=== PATIENT | male | born 1970 | race Caucasian/White ===

== ENCOUNTER 2018-01-08 17:16 | Emergency (ER) | payer SELFPAY ==
[2018-01-08] MEDS: HYDROcodone/APAP 5/325MG 1 TAB TABLET PO (19:08)
== END 2018-01-08 19:10 | disposition home or self-care (01) ==
LOC: ER 19:10
DX: L03.116 Cellulitis of left lower limb (principal); R11.0 Nausea
CPT/HCPCS: 99283

== ENCOUNTER 2019-03-26 19:44 | Inpatient (IN) | payer SELFPAY ==
[~2019-03-26] VITALS: Ht 185.4 cm; Wt 118.8 kg
[~2019-03-26 19:44] MED LIST: CLIN300C8 PO
[2019-03-26 20:29] LABS: BASO # 0.2 x10^3/uL (0.0-0.2); BASO % 1 % (0-3); EOS % 0 % (0-3); HEMATOCRIT 42.1 % (39.0-53.0); HEMOGLOBIN 14.3 g/dL (13.0-17.5); LYMPH # 0.5 x10^3/uL (1.0-4.8); LYMPH % 1 % (24-48); MEAN CORPUSCULAR HEMOGLOBIN 30 pg (25-35); MEAN CORPUSCULAR HGB CONC 34 g/dL (31-37); MEAN CORPUSCULAR VOLUME 89 fL (79-100); MONO # 1.1 x10^3/uL (0.0-1.1); MONO % 3 % (0-9); NEUT # 33.9 x10^3/uL (1.8-7.7); NEUT % 95 % (31-73); PLATELET COUNT 247 x10^3/uL (140-400); RED BLOOD COUNT 4.73 x10^6/uL (4.30-5.70); RED CELL DISTRIBUTION WIDTH 14.3 % (11.5-14.5); WHITE BLOOD COUNT 35.8 x10^3/uL (4.0-11.0)
[2019-03-26] MEDS ORDERED: PIPERACILLIN/TAZOBACTAM 4.5 GM in IV NORMAL SALINE 100ML 100 ML IV ONE (20:30)
[2019-03-26] MEDS ORDERED: VANCOMYCIN PER PHARMACY MC ONE (20:30)
[2019-03-26] MEDS ORDERED: VANCOMYCIN 2 GM in IV NORMAL SALINE 500ML BAG 500 ML IV ONE (20:30)
[2019-03-26] MEDS ORDERED: ACETAMINOPHEN 500 MG TABLET PO ONE (20:30)
[2019-03-26] MEDS: IV NORMAL SALINE 1000ML BAG 1,000 ML IV SCH ×3 (20:31→22:43)
[2019-03-26 20:36] LABS: CALCIUM 9.1 mg/dL (8.5-10.1); GFR 79.4; POTASSIUM 4.2 mmol/L (3.5-5.1)
[2019-03-26 20:42] LABS: ALBUMIN 3.6 g/dL (3.4-5.0); ALBUMIN/GLOBULIN RATIO 1.1 (1.0-1.7); C-REACTIVE PROTEIN 60.8 mg/L (0-3.3); TOTAL BILIRUBIN 0.9 mg/dL (0.2-1.0)
[2019-03-26 21:12] LABS: % BANDS 16 % (0-9); % LYMPHS 2 % (24-48); % MONOS 2 % (0-10); % SEGS 80 % (35-66); PLT ESTIMATE ADEQUATE (ADEQUATE)
--- NOTE | 2019-03-26 21:29 | PHYS DOC ---
Past Medical History Past Medical History: No Pertinent History, Other Additional Past Medical Histor: cellulitis Past Surgical History: No Surgical History, Other Additional Past Surgical Histo: lymph node removal Alcohol Use: None Drug Use: None, Methamphetamine Adult General Chief Complaint Chief Complaint: CELLULITIS HPI HPI Patient is a 48 year old male with no significant medical history who presents to the ED today complaining of cellulitis to bilateral lower extremities that has been going on since January 2019. Patient states he was admitted at the end of January for the same infection, he states he was treated with antibiotics. He states the infection did not clear all the way. He states he has continued to have symptoms on and off since then. He states he started running a fever this morning. Denies any nausea, vomiting. Review of Systems Review of Systems Constitutional: Reports fever Eyes: Denies change in visual acuity, redness, or eye pain [] HENT: Denies nasal congestion or sore throat [] Respiratory: Denies cough or shortness of breath [] Cardiovascular: No additional information not addressed in HPI [] GI: Denies abdominal pain, nausea, vomiting, bloody stools or diarrhea [] : Denies dysuria or hematuria [] Musculoskeletal: Denies back pain or joint pain [] Integument: Reports bilateral lower extremity cellulitis Neurologic: Denies headache, focal weakness or sensory changes [] All other systems were reviewed and found to be within normal limits, except as documented in this note. Current Medications Current Medications Allergies Allergies Allergies Coded Allergies Type Severity Reaction Last Updated Verified Iodinated Contrast Media Allergy Severe "throat swells closed" 02/16/19 Yes Physical Exam Physical Exam Constitutional: Well developed, well nourished, no acute distress, non-toxic appearance. [] HENT: Normocephalic, atraumatic, bilateral external ears normal, oropharynx moist, no oral exudates, nose normal. [] Eyes: PERRLA, EOMI, conjunctiva normal, no discharge. [] Neck: Normal range of motion, no tenderness, supple, no stridor. [] Cardiovascular:Heart rate regular rhythm, no murmur [] Lungs & Thorax: Bilateral breath sounds clear to auscultation [] Abdomen: Bowel sounds normal, soft, no tenderness, no masses, no pulsatile masses. [] Skin: Warm, dry, no erythema, no rash. [] Back: No tenderness, no CVA tenderness. [] Extremities: Bilateral lower extremities with cellulitis worse on the left fuchs, areas of streaking into the left inner thigh as well as right inner thigh, +2 bilateral pedal pulses. Negative Homans sign bilaterally. Neurologic: Alert and oriented X 3, normal motor function, normal sensory function, no focal deficits noted. [] Psychologic: Affect normal, judgement normal, mood normal. [] Current Patient Data Vital Signs Vital Signs Date Time Temp Pulse Resp B/P (MAP) Pulse Ox O2 Delivery O2 Flow Rate FiO2 03/26/19 19:50 102.5 114 19 114/67 (83) 97 Room Air 102.5 Lab Values Laboratory Tests Test 03/26/19 20:03 White Blood Count 35.8 x10^3/uL (4.0-11.0) H Red Blood Count 4.73 x10^6/uL (4.30-5.70) Hemoglobin 14.3 g/dL (13.0-17.5) Hematocrit 42.1 % (39.0-53.0) Mean Corpuscular Volume 89 fL (79-100) Mean Corpuscular Hemoglobin 30 pg (25-35) Mean Corpuscular Hemoglobin Concent 34 g/dL (31-37) Red Cell Distribution Width 14.3 % (11.5-14.5) Platelet Count 247 x10^3/uL (140-400) Neutrophils (%) (Auto) 95 % (31-73) H Lymphocytes (%) (Auto) 1 % (24-48) L Monocytes (%) (Auto) 3 % (0-9) Eosinophils (%) (Auto) 0 % (0-3) Basophils (%) (Auto) 1 % (0-3) Neutrophils # (Auto) 33.9 x10^3/uL (1.8-7.7) H Lymphocytes # (Auto) 0.5 x10^3/uL (1.0-4.8) L Monocytes # (Auto) 1.1 x10^3/uL (0.0-1.1) Eosinophils # (Auto) 0.0 x10^3/uL (0.0-0.7) Basophils # (Auto) 0.2 x10^3/uL (0.0-0.2) Segmented Neutrophils % 80 % (35-66) H Band Neutrophils % 16 % (0-9) H Lymphocytes % 2 % (24-48) L Monocytes % 2 % (0-10) Platelet Estimate Adequate (ADEQUATE) Erythrocyte Sedimentation Rate 18 (0-15) H Sodium Level 137 mmol/L (136-145) Potassium Level 4.2 mmol/L (3.5-5.1) Chloride Level 99 mmol/L (98-107) Carbon Dioxide Level 28 mmol/L (21-32) Anion Gap 10 (6-14) Blood Urea Nitrogen 16 mg/dL (8-26) Creatinine 1.0 mg/dL (0.7-1.3) Estimated GFR (Cockcroft-Gault) 79.4 BUN/Creatinine Ratio 16 (6-20) Glucose Level 91 mg/dL (70-99) Lactic Acid Level 1.5 mmol/L (0.4-2.0) Calcium Level 9.1 mg/dL (8.5-10.1) Total Bilirubin 0.9 mg/dL (0.2-1.0) Aspartate Amino Transferase (AST) 17 U/L (15-37) Alanine Aminotransferase (ALT) 13 U/L (16-63) L Alkaline Phosphatase 81 U/L (46-116) C-Reactive Protein, Quantitative 60.8 mg/L (0-3.3) H Total Protein 7.0 g/dL (6.4-8.2) Albumin 3.6 g/dL (3.4-5.0) Albumin/Globulin Ratio 1.1 (1.0-1.7) Procalcitonin 0.68 ng/mL (0.00-0.10) H Laboratory Tests 03/26/19 20:03 Laboratory Tests 03/26/19 20:03 EKG EKG [] Radiology/Procedures Radiology/Procedures [] Course & Med Decision Making Course & Med Decision Making Pertinent Labs and Imaging studies reviewed. (See chart for details) This is a 48-year-old male patient presenting to the ED today with fever and cellulitis. Cellulitis began around January 2019 where he was admitted and discharged around February. He states the infection is cleared overweight. Patient arrives in the ED with a temperature of 102.5, heart rate 104, blood pressure 114/67, respiration 19 on room air, O2 sats 97%. He was started on the sepsis protocol. CBC with a WBC of 35.8, left shift and bandemia, CMP with no acute findings. Patient was given Zosyn and vancomycin in the ED as well as IV fluids [address] Tay who requested we give patient clindamycin Spoke with who accepted patient for admission Sepsis reassessment done-see template Dragon Disclaimer Dragon Disclaimer This electronic medical record was generated, in whole or in part, using a voice recognition dictation system. Date and Time of Assessment Date: Mar 26, 2019 Time: 21:43 Vital Signs Vital Signs: Vital Signs Date Time Temp Pulse Resp B/P (MAP) Pulse Ox O2 Delivery O2 Flow Rate FiO2 03/26/19 19:50 102.5 114 19 114/67 (83) 97 Room Air 102.5 Temperature Source: Oral Respirations Respiratory Effort: Normal Respiratory Pattern: Normal Cardiovascular Pulse Rhythm: Regular Heart: Nml rate, reg. rhythm Lung Sounds Breath Sounds: Clear, Wheezes Capillary Refil Capillary Refill: Rt Hand > 3 seconds Peripheral Pulse Pulse Location: Monitor Pulse Strength: Normal (2+) Pulse Assessment Method: Monitor Integumentary Skin: Warm Skin Moisture: Dry Skin Turgor: Normal Skin Color: warm Fingernail Color: WNL Departure Departure Impression: Primary Impression: Cellulitis of both lower extremities Additional Impressions: Sepsis Fever Leukocytosis Disposition: 09 ADMITTED INPATIENT Condition: STABLE Referrals: NO PCP (PCP) Problem Qualifiers Additional Impressions: Sepsis Sepsis type: sepsis due to unspecified organism Sepsis acute organ dysfunction status: unspecified Qualified Codes: A41.9 - Sepsis, unspecified organism Fever Fever type: unspecified Qualified Codes: R50.9 - Fever, unspecified Leukocytosis Leukocytosis type: bandemia Qualified Codes: D72.825 - Bandemia JADEN HOLBROOK LAY BROTHER Mar 26, 2019 21:29
[2019-03-26] MEDS ORDERED: IV NORMAL SALINE 1000ML BAG 1,000 ML IV ONE (21:30)
[2019-03-26] MEDS ORDERED: ONDANSETRON PF 4 MG/2 ML VIAL. IV PRN (21:30)
[2019-03-26] MEDS ORDERED: ACETAMINOPHEN 325 MG TABLET. PO PRN (21:30)
--- NOTE | 2019-03-26 21:47 | RAD ---
Ultrasound venous Doppler INDICATION:Left leg redness, swelling and fever. TECHNIQUE: Grayscale, color Doppler and spectral waveform ultrasound images of the bilateral lower extremities deep veins obtained. COMPARISON: None FINDINGS: The interrogated deep veins are compressible and demonstrate evidence of blood flow with normal respiratory variation and response to augmentation. Enlarged left groin lymph node measuring 4.0 x 1.5 x 1.5 centimeter. IMPRESSION: 1. No sonographic evidence of acute DVT of the bilateral lower extremity deep veins. 2. Enlarged left groin lymph node, nonspecific likely reactive. Electronically signed by: Severo Morris DO (03/26/2019 9:44 PM) [facility]
[2019-03-26] MEDS: CLINDAMYCIN 900MG PREMIX 50 ML IV SCH (23:14)
[2019-03-26 23:25] VITALS: BP 111/65
--- NOTE | 2019-03-26 23:30 | NUR ---
The patient, DEMI BROWN, 48 y/o, M admitted by FAZAL CLEMENTS MD, was given written information regarding hospital policies, unit procedures and contact persons. Valuables were checked and left with patient.
--- NOTE | 2019-03-26 23:30 | NUR ---
Non-administered 1X order of IV fluids, the final bag was already started in the ED.
[2019-03-26] MEDS ORDERED: INFLUENZA VAX SCREEN BY RX. MC PRN (23:45)
[2019-03-27 03:25] VITALS: BP 119/67
[2019-03-27 03:58] LABS: BASO # 0.1 x10^3/uL (0.0-0.2); BASO % 0 % (0-3); EOS % 0 % (0-3); HEMATOCRIT 39.2 % (39.0-53.0); HEMOGLOBIN 13.3 g/dL (13.0-17.5); LYMPH # 0.3 x10^3/uL (1.0-4.8); LYMPH % 1 % (24-48); MEAN CORPUSCULAR HEMOGLOBIN 30 pg (25-35); MEAN CORPUSCULAR HGB CONC 34 g/dL (31-37); MEAN CORPUSCULAR VOLUME 89 fL (79-100); MONO # 0.7 x10^3/uL (0.0-1.1); MONO % 3 % (0-9); NEUT # 25.7 x10^3/uL (1.8-7.7); NEUT % 96 % (31-73); PLATELET COUNT 225 x10^3/uL (140-400); RED BLOOD COUNT 4.41 x10^6/uL (4.30-5.70); RED CELL DISTRIBUTION WIDTH 14.5 % (11.5-14.5); WHITE BLOOD COUNT 26.8 x10^3/uL (4.0-11.0)
[2019-03-27 04:27] LABS: ALBUMIN/GLOBULIN RATIO 0.9 (1.0-1.7); CALCIUM 8.2 mg/dL (8.5-10.1); GFR 79.4; POTASSIUM 3.9 mmol/L (3.5-5.1); TOTAL BILIRUBIN 0.5 mg/dL (0.2-1.0); TOTAL PROTEIN 6.4 g/dL (6.4-8.2)
[2019-03-27] MEDS: CLINDAMYCIN 900MG PREMIX 50 ML IV SCH ×3 (05:46→22:55)
[2019-03-27 07:00] VITALS: BP 123/78
--- NOTE | 2019-03-27 07:50 | PDOC1 ---
History and Physical Date of Admission Date of Admission DATE: 03/27/19 TIME: 07:49 Identification/Chief Complaint Chief Complaint seen in er , 48 year old male with no significant medical history who presents to the ED today complaining of cellulitis to bilateral lower extremities that has been going on since January 2019. Patient states he was admitted at the end of January for the same infection, he states he was treated with antibiotics. He states the infection did not clear all the way. states he has continued to have symptoms on and off since then. DOA he started running a fever Past Medical History Past Medical History Past Medical History Past Medical History Past Medical History: No Pertinent History, Other Additional Past Medical Histor: cellulitis Past Surgical History: No Surgical History, Other Additional Past Surgical Histo: lymph node removal Alcohol Use: None Drug Use: None, Methamphetamine fhx obesity GI: GERD Psych: Addictions Past Surgical History Past Surgical History: No pertinent history Family History Family History: Hypertension Social History Smoke: <1 pack per day ALCOHOL: occassional Drugs: None, Crystal meth Current Problem List Problem List Problems Medical Problems: (1) Leukocytosis Status: Acute Current Medications Current Medications Current Medications Sodium Chloride 1,000 ml @ 2,400 mls/hr Q25M IV Last administered on 03/26/19at 22:43; Start 03/26/19 at 20:30; Stop 03/26/19 at 21:29; Status DC Piperacillin Sod/ Tazobactam Sod 4.5 gm/Sodium Chloride 100 ml @ 200 mls/hr 1X ONCE IV Last administered on 03/26/19at 20:30; Start 03/26/19 at 20:30; Stop 03/26/19 at 20:59; Status DC Vancomycin HCl (Vanco Per Pharmacy) 1 each 1X ONCE MC ; Start 03/26/19 at 20:30; Stop 03/26/19 at 20:31; Status DC Acetaminophen (Tylenol) 1,000 mg 1X ONCE PO Last administered on 03/26/19at 20:31; Start 03/26/19 at 20:30; Stop 03/26/19 at 20:31; Status DC Vancomycin HCl 2 gm/Sodium Chloride 500 ml @ 250 mls/hr 1X ONCE IV Last administered on 03/26/19at 20:31; Start 03/26/19 at 20:30; Stop 03/26/19 at 22:29; Status DC Clindamycin Phosphate 50 ml @ 100 mls/hr Q8HRS IV Last administered on 03/27/19at 05:46; Start 03/26/19 at 22:00 Lactobacillus Rhamnosus (Culturelle) 1 cap BID PO ; Start 03/27/19 at 09:00 Ondansetron HCl (Zofran) 4 mg PRN Q8HRS PRN IV NAUSEA/VOMITING; Start 03/26/19 at 21:30; Stop 03/27/19 at 21:29 Morphine Sulfate (Morphine Sulfate) 4 mg PRN Q2HR PRN IV PAIN; Start 03/26/19 at 21:30; Stop 03/27/19 at 21:29 Acetaminophen (Tylenol) 650 mg PRN Q4HRS PRN PO FEVER Last administered on 03/27/19at 03:46; Start 03/26/19 at 21:30; Stop 03/27/19 at 21:29 Sodium Chloride 1,000 ml @ 125 mls/hr 1X ONCE IV ; Start 03/26/19 at 21:30; Stop 03/27/19 at 05:29; Status DC Influenza Virus Vaccine Quadrival (Afluria Quad 2019-20 (3yr Up) Syringe) 0.5 ml ONCE ONCE VAX IM ; Start 03/27/19 at 09:00; Stop 03/27/19 at 09:01 Info (FLU VACCINE SCREEN per RX) 1 each PRN 1X PRN MC SEE COMMENTS; Start 03/26/19 at 23:45; Status Cancel Active Scripts Active Allergies Allergies: Coded Allergies: Iodinated Contrast Media (Verified Allergy, Severe, "throat swells closed", 02/16/19) ROS Review of System Review of Systems Review of Systems Constitutional: Reports fever Eyes: Denies change in visual acuity, redness, or eye pain [] HENT: Denies nasal congestion or sore throat [] Respiratory: Denies cough or shortness of breath [] Cardiovascular: No additional information not addressed in HPI [] GI: Denies abdominal pain, nausea, vomiting, bloody stools or diarrhea [] : Denies dysuria or hematuria [] Musculoskeletal: Denies back pain or joint pain [] Integument: Reports bilateral lower extremity cellulitis LEFT > RIGHT Neurologic: Denies headache, focal weakness or sensory changes [] 14 PT systems were reviewed and found to be within normal limits, except as documented General: YES: Chills, Fatigue Cardiovascular: No Chest Pain, No Palpitations, No Orthopnea, No Paroxysmal Noc. Dyspnea, No Edema, No Lt Headedness, No Other Gastrointestinal: No Nausea, No Vomiting, No Abdominal Pain, No Diarrhea, No Constipation, No Melena, No Hematochezia, No Other Musculoskeletal: Yes Gait Disturbance Skin: Yes Rash, Yes Skin Lesion Changes Physical Exam Physical Exam Physical Exam Physical Exam Constitutional: Well developed, well nourished, no acute distress, non-toxic appearance. [] HENT: Normocephalic, atraumatic, bilateral external ears normal, oropharynx moist, no oral exudates, nose normal. [] Eyes: PERRLA, EOMI, conjunctiva normal, no discharge. [] Neck: Normal range of motion, no tenderness, supple, no stridor. [] Cardiovascular:Heart rate regular rhythm, no murmur [] Lungs & Thorax: Bilateral breath sounds clear to auscultation [] Abdomen: Bowel sounds normal, soft, no tenderness, no masses, no pulsatile masses. [] Skin: Warm, dry, no erythema, no rash. [] Back: No tenderness, no CVA tenderness. [] Extremities: Bilateral lower extremities with cellulitis worse on the left fuchs, areas of streaking into the left inner thigh as well as right inner thigh, +2 bilateral pedal pulses. Negative Homans sign bilaterally. Neurologic: Alert and oriented X 3, normal motor function, normal sensory function, no focal deficits noted. [] Psychologic: Affect normal, judgement normal, mood normal. [] General: Cooperative HEENT: Atraumatic, PERRLA Lungs: Clear to auscultation Heart: RRR, no thrills Abdomen: Normal bowel sounds, Soft, No tenderness Male Genitals Exam: scrotum tenderness (R) Rectal Exam: not examined Extremities: No cyanosis Neuro: Normal speech, Cranial nerves 3-12 NL Psych/Mental Status: Mental status NL, Mood NL Vitals Vitals Vital Signs Date Time Temp Pulse Resp B/P (MAP) Pulse Ox O2 Delivery O2 Flow Rate FiO2 03/27/19 03:25 101.3 95 18 119/67 (84) 94 Room Air 101.3 Labs Labs Laboratory Tests Test 03/26/19 20:03 03/27/19 03:20 White Blood Count 35.8 x10^3/uL (4.0-11.0) 26.8 x10^3/uL (4.0-11.0) Red Blood Count 4.73 x10^6/uL (4.30-5.70) 4.41 x10^6/uL (4.30-5.70) Hemoglobin 14.3 g/dL (13.0-17.5) 13.3 g/dL (13.0-17.5) Hematocrit 42.1 % (39.0-53.0) 39.2 % (39.0-53.0) Mean Corpuscular Volume 89 fL (79-100) 89 fL (79-100) Mean Corpuscular Hemoglobin 30 pg (25-35) 30 pg (25-35) Mean Corpuscular Hemoglobin Concent 34 g/dL (31-37) 34 g/dL (31-37) Red Cell Distribution Width 14.3 % (11.5-14.5) 14.5 % (11.5-14.5) Platelet Count 247 x10^3/uL (140-400) 225 x10^3/uL (140-400) Neutrophils (%) (Auto) 95 % (31-73) 96 % (31-73) Lymphocytes (%) (Auto) 1 % (24-48) 1 % (24-48) Monocytes (%) (Auto) 3 % (0-9) 3 % (0-9) Eosinophils (%) (Auto) 0 % (0-3) 0 % (0-3) Basophils (%) (Auto) 1 % (0-3) 0 % (0-3) Neutrophils # (Auto) 33.9 x10^3/uL (1.8-7.7) 25.7 x10^3/uL (1.8-7.7) Lymphocytes # (Auto) 0.5 x10^3/uL (1.0-4.8) 0.3 x10^3/uL (1.0-4.8) Monocytes # (Auto) 1.1 x10^3/uL (0.0-1.1) 0.7 x10^3/uL (0.0-1.1) Eosinophils # (Auto) 0.0 x10^3/uL (0.0-0.7) 0.0 x10^3/uL (0.0-0.7) Basophils # (Auto) 0.2 x10^3/uL (0.0-0.2) 0.1 x10^3/uL (0.0-0.2) Segmented Neutrophils % 80 % (35-66) Band Neutrophils % 16 % (0-9) Lymphocytes % 2 % (24-48) Monocytes % 2 % (0-10) Platelet Estimate Adequate (ADEQUATE) Erythrocyte Sedimentation Rate 18 (0-15) Sodium Level 137 mmol/L (136-145) 138 mmol/L (136-145) Potassium Level 4.2 mmol/L (3.5-5.1) 3.9 mmol/L (3.5-5.1) Chloride Level 99 mmol/L (98-107) 102 mmol/L (98-107) Carbon Dioxide Level 28 mmol/L (21-32) 26 mmol/L (21-32) Anion Gap 10 (6-14) 10 (6-14) Blood Urea Nitrogen 16 mg/dL (8-26) 13 mg/dL (8-26) Creatinine 1.0 mg/dL (0.7-1.3) 1.0 mg/dL (0.7-1.3) Estimated GFR (Cockcroft-Gault) 79.4 79.4 BUN/Creatinine Ratio 16 (6-20) 13 (6-20) Glucose Level 91 mg/dL (70-99) 99 mg/dL (70-99) Lactic Acid Level 1.5 mmol/L (0.4-2.0) Calcium Level 9.1 mg/dL (8.5-10.1) 8.2 mg/dL (8.5-10.1) Total Bilirubin 0.9 mg/dL (0.2-1.0) 0.5 mg/dL (0.2-1.0) Aspartate Amino Transf (AST/SGOT) 17 U/L (15-37) 16 U/L (15-37) Alanine Aminotransferase (ALT/SGPT) 13 U/L (16-63) 10 U/L (16-63) Alkaline Phosphatase 81 U/L (46-116) 65 U/L (46-116) C-Reactive Protein, Quantitative 60.8 mg/L (0-3.3) Total Protein 7.0 g/dL (6.4-8.2) 6.4 g/dL (6.4-8.2) Albumin 3.6 g/dL (3.4-5.0) 3.0 g/dL (3.4-5.0) Albumin/Globulin Ratio 1.1 (1.0-1.7) 0.9 (1.0-1.7) Procalcitonin 0.68 ng/mL (0.00-0.10) Laboratory Tests Test 03/26/19 20:03 03/27/19 03:20 White Blood Count 35.8 x10^3/uL (4.0-11.0) 26.8 x10^3/uL (4.0-11.0) Red Blood Count 4.73 x10^6/uL (4.30-5.70) 4.41 x10^6/uL (4.30-5.70) Hemoglobin 14.3 g/dL (13.0-17.5) 13.3 g/dL (13.0-17.5) Hematocrit 42.1 % (39.0-53.0) 39.2 % (39.0-53.0) Mean Corpuscular Volume 89 fL (79-100) 89 fL (79-100) Mean Corpuscular Hemoglobin 30 pg (25-35) 30 pg (25-35) Mean Corpuscular Hemoglobin Concent 34 g/dL (31-37) 34 g/dL (31-37) Red Cell Distribution Width 14.3 % (11.5-14.5) 14.5 % (11.5-14.5) Platelet Count 247 x10^3/uL (140-400) 225 x10^3/uL (140-400) Neutrophils (%) (Auto) 95 % (31-73) 96 % (31-73) Lymphocytes (%) (Auto) 1 % (24-48) 1 % (24-48) Monocytes (%) (Auto) 3 % (0-9) 3 % (0-9) Eosinophils (%) (Auto) 0 % (0-3) 0 % (0-3) Basophils (%) (Auto) 1 % (0-3) 0 % (0-3) Neutrophils # (Auto) 33.9 x10^3/uL (1.8-7.7) 25.7 x10^3/uL (1.8-7.7) Lymphocytes # (Auto) 0.5 x10^3/uL (1.0-4.8) 0.3 x10^3/uL (1.0-4.8) Monocytes # (Auto) 1.1 x10^3/uL (0.0-1.1) 0.7 x10^3/uL (0.0-1.1) Eosinophils # (Auto) 0.0 x10^3/uL (0.0-0.7) 0.0 x10^3/uL (0.0-0.7) Basophils # (Auto) 0.2 x10^3/uL (0.0-0.2) 0.1 x10^3/uL (0.0-0.2) Segmented Neutrophils % 80 % (35-66) Band Neutrophils % 16 % (0-9) Lymphocytes % 2 % (24-48) Monocytes % 2 % (0-10) Platelet Estimate Adequate (ADEQUATE) Erythrocyte Sedimentation Rate 18 (0-15) Sodium Level 137 mmol/L (136-145) 138 mmol/L (136-145) Potassium Level 4.2 mmol/L (3.5-5.1) 3.9 mmol/L (3.5-5.1) Chloride Level 99 mmol/L (98-107) 102 mmol/L (98-107) Carbon Dioxide Level 28 mmol/L (21-32) 26 mmol/L (21-32) Anion Gap 10 (6-14) 10 (6-14) Blood Urea Nitrogen 16 mg/dL (8-26) 13 mg/dL (8-26) Creatinine 1.0 mg/dL (0.7-1.3) 1.0 mg/dL (0.7-1.3) Estimated GFR (Cockcroft-Gault) 79.4 79.4 BUN/Creatinine Ratio 16 (6-20) 13 (6-20) Glucose Level 91 mg/dL (70-99) 99 mg/dL (70-99) Lactic Acid Level 1.5 mmol/L (0.4-2.0) Calcium Level 9.1 mg/dL (8.5-10.1) 8.2 mg/dL (8.5-10.1) Total Bilirubin 0.9 mg/dL (0.2-1.0) 0.5 mg/dL (0.2-1.0) Aspartate Amino Transf (AST/SGOT) 17 U/L (15-37) 16 U/L (15-37) Alanine Aminotransferase (ALT/SGPT) 13 U/L (16-63) 10 U/L (16-63) Alkaline Phosphatase 81 U/L (46-116) 65 U/L (46-116) C-Reactive Protein, Quantitative 60.8 mg/L (0-3.3) Total Protein 7.0 g/dL (6.4-8.2) 6.4 g/dL (6.4-8.2) Albumin 3.6 g/dL (3.4-5.0) 3.0 g/dL (3.4-5.0) Albumin/Globulin Ratio 1.1 (1.0-1.7) 0.9 (1.0-1.7) Procalcitonin 0.68 ng/mL (0.00-0.10) Images Images Ultrasound venous Doppler INDICATION:Left leg redness, swelling and fever. TECHNIQUE: Grayscale, color Doppler and spectral waveform ultrasound images of the bilateral lower extremities deep veins obtained. COMPARISON: None FINDINGS: The interrogated deep veins are compressible and demonstrate evidence of blood flow with normal respiratory variation and response to augmentation. Enlarged left groin lymph node measuring 4.0 x 1.5 x 1.5 centimeter. IMPRESSION: 1. No sonographic evidence of acute DVT of the bilateral lower extremity deep veins. 2. Enlarged left groin lymph node, nonspecific likely reactive. Electronically signed by: Severo Cancino DO (03/26/2019 9:44 PM) [facility] DICTATED and SIGNED BY: SEVERO CANCINO DO DATE: 03/26/192143 VTE Prophylaxis Ordered VTE Prophylaxis Devices: No VTE Pharmacological Prophylaxi: Yes Assessment/Plan Assessment/Plan IMPRESSION ACUTE ON RECURRENT CELLULITIS OF LEGS SEPSIS History of methamphetamine abuse. MORBID OBESITY No sonographic evidence of acute DVT of the bilateral lower extremity deep veins. 03/26 US Enlarged left groin lymph node, nonspecific likely reactive. IV clindamycin, vancomycin and Zosyn. labs and cultures, elevation. DVT PROPHYLAXIS 52 MIN PT EXAM, CHART REVIEW, > 50% OF TIME SPENT WITH EXAM, CHART REVIEW, PT CARE COORDINATION MARICARMEN LEIGH MD Mar 27, 2019 07:50
--- NOTE | 2019-03-27 08:30 | PDOC ---
Infectious Disease Note Vital Sign Vital Signs Vital Signs Date Time Temp Pulse Resp B/P (MAP) Pulse Ox O2 Delivery O2 Flow Rate FiO2 03/27/19 03:25 101.3 95 18 119/67 (84) 94 Room Air 101.3 Labs Lab Laboratory Tests Test 03/26/19 20:03 03/27/19 03:20 White Blood Count 35.8 x10^3/uL (4.0-11.0) 26.8 x10^3/uL (4.0-11.0) Red Blood Count 4.73 x10^6/uL (4.30-5.70) 4.41 x10^6/uL (4.30-5.70) Hemoglobin 14.3 g/dL (13.0-17.5) 13.3 g/dL (13.0-17.5) Hematocrit 42.1 % (39.0-53.0) 39.2 % (39.0-53.0) Mean Corpuscular Volume 89 fL (79-100) 89 fL (79-100) Mean Corpuscular Hemoglobin 30 pg (25-35) 30 pg (25-35) Mean Corpuscular Hemoglobin Concent 34 g/dL (31-37) 34 g/dL (31-37) Red Cell Distribution Width 14.3 % (11.5-14.5) 14.5 % (11.5-14.5) Platelet Count 247 x10^3/uL (140-400) 225 x10^3/uL (140-400) Neutrophils (%) (Auto) 95 % (31-73) 96 % (31-73) Lymphocytes (%) (Auto) 1 % (24-48) 1 % (24-48) Monocytes (%) (Auto) 3 % (0-9) 3 % (0-9) Eosinophils (%) (Auto) 0 % (0-3) 0 % (0-3) Basophils (%) (Auto) 1 % (0-3) 0 % (0-3) Neutrophils # (Auto) 33.9 x10^3/uL (1.8-7.7) 25.7 x10^3/uL (1.8-7.7) Lymphocytes # (Auto) 0.5 x10^3/uL (1.0-4.8) 0.3 x10^3/uL (1.0-4.8) Monocytes # (Auto) 1.1 x10^3/uL (0.0-1.1) 0.7 x10^3/uL (0.0-1.1) Eosinophils # (Auto) 0.0 x10^3/uL (0.0-0.7) 0.0 x10^3/uL (0.0-0.7) Basophils # (Auto) 0.2 x10^3/uL (0.0-0.2) 0.1 x10^3/uL (0.0-0.2) Segmented Neutrophils % 80 % (35-66) Band Neutrophils % 16 % (0-9) Lymphocytes % 2 % (24-48) Monocytes % 2 % (0-10) Platelet Estimate Adequate (ADEQUATE) Erythrocyte Sedimentation Rate 18 (0-15) Sodium Level 137 mmol/L (136-145) 138 mmol/L (136-145) Potassium Level 4.2 mmol/L (3.5-5.1) 3.9 mmol/L (3.5-5.1) Chloride Level 99 mmol/L (98-107) 102 mmol/L (98-107) Carbon Dioxide Level 28 mmol/L (21-32) 26 mmol/L (21-32) Anion Gap 10 (6-14) 10 (6-14) Blood Urea Nitrogen 16 mg/dL (8-26) 13 mg/dL (8-26) Creatinine 1.0 mg/dL (0.7-1.3) 1.0 mg/dL (0.7-1.3) Estimated GFR (Cockcroft-Gault) 79.4 79.4 BUN/Creatinine Ratio 16 (6-20) 13 (6-20) Glucose Level 91 mg/dL (70-99) 99 mg/dL (70-99) Lactic Acid Level 1.5 mmol/L (0.4-2.0) Calcium Level 9.1 mg/dL (8.5-10.1) 8.2 mg/dL (8.5-10.1) Total Bilirubin 0.9 mg/dL (0.2-1.0) 0.5 mg/dL (0.2-1.0) Aspartate Amino Transf (AST/SGOT) 17 U/L (15-37) 16 U/L (15-37) Alanine Aminotransferase (ALT/SGPT) 13 U/L (16-63) 10 U/L (16-63) Alkaline Phosphatase 81 U/L (46-116) 65 U/L (46-116) C-Reactive Protein, Quantitative 60.8 mg/L (0-3.3) Total Protein 7.0 g/dL (6.4-8.2) 6.4 g/dL (6.4-8.2) Albumin 3.6 g/dL (3.4-5.0) 3.0 g/dL (3.4-5.0) Albumin/Globulin Ratio 1.1 (1.0-1.7) 0.9 (1.0-1.7) Procalcitonin 0.68 ng/mL (0.00-0.10) Objective Assessment Sepsis - POA 03/26 LLE cellulitis Fever Leukocytosis - better Meth use - smoke states last use 3 weeks ago Plan Plan of Care Cont clinda/Vanc/Zosyn F/u cults and labs Elevation Thank you # [phone] ROBER MADRID MD Mar 27, 2019 08:30
[2019-03-27] MEDS: LACTOBACILLUS RHAMNOSUS GG 1 CAPSULE. PO SCH ×2 (08:32→21:04)
--- NOTE | 2019-03-27 08:40 | CONS ---
DATE OF CONSULTATION: 03/27/2019 LOCATION: The patient's room 662. REQUESTING PHYSICIAN: Araceli COLINDRES APRN REASON FOR CONSULTATION: Cellulitis. HISTORY OF PRESENT ILLNESS: The patient is a 48-year-old gentleman with a history of previous cellulitis of his lower extremities, also has a history of meth use, but he does not inject, states he smokes and last use was about 3 weeks ago. He states he works in construction and about a week ago, developed pain in his left groin area. States he had a few scratches on his left leg. Over the course of the next several days, his left leg became more painful. However, yesterday it became more red. He states he has been running fever for about 5 days, felt like he had the flu, had been taking aspirin, had a headache. He had nausea and some chest discomfort, but did not vomit. No shortness of air. No diarrhea. He presented to [facility], had a temperature of 102.5. White blood cell count was elevated at 35.8 with 16% bands. Procalcitonin was elevated at 0.68. Ultrasound was negative for DVT. He was given a dose of vancomycin and Zosyn last evening, I was contacted and recommended institution of clindamycin as well. Currently, the patient is lying in bed, feels a little bit better, but still continues to ache in general. No change in vision. PAST MEDICAL HISTORY: Positive for previous cellulitis, also has a history of a nail going through his foot with sepsis, blood infection about 15 years ago, but he cannot remember the bacteria. PAST SURGICAL HISTORY: Otherwise, negative. REVIEW OF SYSTEMS: Otherwise, negative. ALLERGIES: No known drug allergies. SOCIAL HISTORY: He does work in construction. He is a smoker. History of meth again 3 weeks ago. Does have a dog. Denies any sexually transmitted diseases. FAMILY HISTORY: Positive for hypertension. CURRENT MEDICATIONS: Include clindamycin, vancomycin and Zosyn. Other meds are available and reviewed in the chart. PHYSICAL EXAMINATION: VITAL SIGNS: Most recent temperature 101.3, pulse 95, respirations 18, blood pressure 119/67, satting 94% on room air. CONSTITUTIONAL: He is cooperative. He is in no acute distress, looks comfortable. He is lying in bed. HEENT: Pupils equal and reactive. He has normal conjunctivae. Oral cavity, pharynx has questionable dentition. NECK: Supple. Good range of motion. LUNGS: Clear to auscultation bilaterally. HEART: S1, S2, without murmur. ABDOMEN: Obese, soft, nontender, no guarding or rebound. EXTREMITIES: Without clubbing, cyanosis. Left lower extremity has erythema about the tibial area that is warm. Does have some mild tracking up through the medial aspect of the leg, has some discomfort in his left groin area. Right thigh has some mild irritation and some erythema. SKIN: Warm to touch without generalized signs of rash. Does have some scratches that are healing on his left lower extremity and his right lower extremity as well. NEUROLOGIC: He is nonfocal. PSYCHIATRIC: Affect is appropriate. LABORATORY VALUES: White count 26.8, hemoglobin 13.3, platelets of 225 with 96 segs, 1 lymph. Creatinine of 1. Normal liver function study test. Procalcitonin reviewed in history of present illness as well as Radiology. IMPRESSION: 1. Sepsis present on admission, 7th. 2. Left lower extremity cellulitis. 3. Fever. 4. Leukocytosis, better. 5. Methamphetamine use, smokes, states last use 3 weeks ago. RECOMMENDATIONS: We will continue the clindamycin, vancomycin and Zosyn. Follow up labs and cultures, needs elevation. Thank you for allowing me to participate in the patient's care. If you have any questions, please do not hesitate to contact me. ROBER MADRID MD DR: AMEENA/javan JOB#: [id number] / [id number]
[2019-03-27] MEDS: VANCOMYCIN PER PHARMACY MC PRN (08:46)
[2019-03-27] MEDS ORDERED: FLU VAX QS 2019-20 (36MOS+)/PF 0.5 ML SYRINGE. VAX IM ONE (09:00)
[2019-03-27] MEDS: VANCOMYCIN 2 GM in IV NORMAL SALINE 500ML BAG 500 ML IV SCH ×2 (09:22→21:03)
[2019-03-27] MEDS: MORPHINE SULFATE 4 MG/ML VIAL. IV PRN ×2 (09:29→16:58)
[2019-03-27 11:34] VITALS: BP 159/88
[2019-03-27] MEDS ORDERED: SEVOFLURANE 16 TO 30 MINUTES. IH ONE (12:03)
[2019-03-27] MEDS ORDERED: ONDANSETRON PF 4 MG/2 ML VIAL. ONE (12:03)
[2019-03-27] MEDS ORDERED: PROPOFOL 0 ML IV ONE (12:04)
[2019-03-27] MEDS ORDERED: LIDOCAINE 2% PF 5 ML VIAL. ONE (12:04)
--- NOTE | 2019-03-27 12:16 | NUR ---
SW following pt for dc planning. Chart reviewed. Pt lives at home with family and has no significant medical history. Pt is admitted for cellulitis, sepsis and fever. Pt has been to [facility] in January 2019 and was treated with abx. Pt is self pay and HCFS will continue to follow to evaluate eligibility for programs. ID following pt and no dc recommendation noted at this time. SW will continue to follow pt as needed.
[2019-03-27] MEDS: PIPERACILLIN/TAZOBACTAM 4.5 GM in IV NORMAL SALINE 100ML 100 ML IV SCH ×3 (13:08→23:59)
[2019-03-27] MEDS: ENOXAPARIN 40 MG/0.4 ML SYRINGE. SQ SCH (13:08)
[2019-03-27 14:20] VITALS: BP 153/84
[2019-03-27 19:30] VITALS: BP 113/72
[2019-03-27] MEDS ORDERED: MORPHINE SULFATE 2 MG/ML VIAL. IV PRN (19:30)
[2019-03-27] MEDS: fentaNYL PF VIAL 100 MCG/2 ML VIAL IVP PRN ×2 (21:04→23:01)
[2019-03-27] MEDS: HYDROcodone/APAP 5/325MG 1 TAB TABLET PO PRN (21:04)
[2019-03-27 23:43] VITALS: BP 127/65
[2019-03-28 03:01] VITALS: BP 134/83
[2019-03-28] MEDS: PIPERACILLIN/TAZOBACTAM 4.5 GM in IV NORMAL SALINE 100ML 100 ML IV SCH ×4 (05:15→23:01)
[2019-03-28] MEDS: CLINDAMYCIN 900MG PREMIX 50 ML IV SCH (05:19)
[2019-03-28 07:30] VITALS: BP 113/82
[2019-03-28 08:48] LABS: BASO % 0 % (0-3); EOS # 0.4 x10^3/uL (0.0-0.7); EOS % 3 % (0-3); HEMATOCRIT 39.9 % (39.0-53.0); LYMPH # 0.9 x10^3/uL (1.0-4.8); LYMPH % 8 % (24-48); MEAN CORPUSCULAR HEMOGLOBIN 30 pg (25-35); MEAN CORPUSCULAR HGB CONC 33 g/dL (31-37); MEAN CORPUSCULAR VOLUME 91 fL (79-100); MONO # 1.1 x10^3/uL (0.0-1.1); MONO % 10 % (0-9); NEUT # 9.3 x10^3/uL (1.8-7.7); NEUT % 79 % (31-73); PLATELET COUNT 227 x10^3/uL (140-400); RED BLOOD COUNT 4.41 x10^6/uL (4.30-5.70); RED CELL DISTRIBUTION WIDTH 14.8 % (11.5-14.5); WHITE BLOOD COUNT 11.7 x10^3/uL (4.0-11.0)
[2019-03-28 09:09] LABS: CALCIUM 8.2 mg/dL (8.5-10.1); CREATININE 0.9 mg/dL (0.7-1.3); GFR 89.7; POTASSIUM 4.3 mmol/L (3.5-5.1)
[2019-03-28 09:14] LABS: VANC TR 11.1 mcg/mL (10.0-20.0)
[2019-03-28] MEDS: LACTOBACILLUS RHAMNOSUS GG 1 CAPSULE. PO SCH ×2 (09:37→23:01)
--- NOTE | 2019-03-28 09:48 | PDOC ---
Infectious Disease Note Subjective Subjective Better - less aches. Leg with less swelling Eating well No F/C/s/N/V/d/SOA/rash/dysuria ROS ROS o/w neg Vital Sign Vital Signs Vital Signs Date Time Temp Pulse Resp B/P (MAP) Pulse Ox O2 Delivery O2 Flow Rate FiO2 03/28/19 07:30 97.7 76 16 113/82 (92) 97 Room Air 97.7 Physical Exam PHYSICAL EXAM CONSTITUTIONAL: He is cooperative. He is in no acute distress, looks comfortable. He is lying in bed. HEENT: Pupils equal and reactive. He has normal conjunctivae. Oral cavity, pharynx has questionable dentition. NECK: Supple. Good range of motion. LUNGS: Clear to auscultation bilaterally. HEART: S1, S2, without murmur. ABDOMEN: Obese, soft, nontender, no guarding or rebound. EXTREMITIES: Without clubbing, cyanosis. Left lower extremity has improved erythema about the tibial area that is less warm. Does have some mild tracking up through the medial aspect of the leg, has some discomfort in his left groin area - better. Right thigh has some mild irritation and some erythema. SKIN: Warm to touch without generalized signs of rash. Does have some scratches that are healing on his left lower extremity and his right lower extremity as well. NEUROLOGIC: He is nonfocal. PSYCHIATRIC: Affect is appropriate. Labs Lab Laboratory Tests Test 03/28/19 08:30 White Blood Count 11.7 x10^3/uL (4.0-11.0) Red Blood Count 4.41 x10^6/uL (4.30-5.70) Hemoglobin 13.0 g/dL (13.0-17.5) Hematocrit 39.9 % (39.0-53.0) Mean Corpuscular Volume 91 fL (79-100) Mean Corpuscular Hemoglobin 30 pg (25-35) Mean Corpuscular Hemoglobin Concent 33 g/dL (31-37) Red Cell Distribution Width 14.8 % (11.5-14.5) Platelet Count 227 x10^3/uL (140-400) Neutrophils (%) (Auto) 79 % (31-73) Lymphocytes (%) (Auto) 8 % (24-48) Monocytes (%) (Auto) 10 % (0-9) Eosinophils (%) (Auto) 3 % (0-3) Basophils (%) (Auto) 0 % (0-3) Neutrophils # (Auto) 9.3 x10^3/uL (1.8-7.7) Lymphocytes # (Auto) 0.9 x10^3/uL (1.0-4.8) Monocytes # (Auto) 1.1 x10^3/uL (0.0-1.1) Eosinophils # (Auto) 0.4 x10^3/uL (0.0-0.7) Basophils # (Auto) 0.0 x10^3/uL (0.0-0.2) Sodium Level 141 mmol/L (136-145) Potassium Level 4.3 mmol/L (3.5-5.1) Chloride Level 105 mmol/L (98-107) Carbon Dioxide Level 30 mmol/L (21-32) Anion Gap 6 (6-14) Blood Urea Nitrogen 8 mg/dL (8-26) Creatinine 0.9 mg/dL (0.7-1.3) Estimated GFR (Cockcroft-Gault) 89.7 Glucose Level 87 mg/dL (70-99) Calcium Level 8.2 mg/dL (8.5-10.1) Vancomycin Level Trough 11.1 mcg/mL (10.0-20.0) Vancomycin Last Dose Date Unknown Vancomycin Last Dose Time Unknown Micro Microbiology 03/26/19 Blood Culture - Preliminary, Resulted NO GROWTH AFTER 1 DAY Objective Assessment Sepsis - POA 03/26 LLE cellulitis Fever - better Leukocytosis - better Meth use - smoke states last use 3 weeks ago Plan Plan of Care Discont clinda Cont Vanc/Zosyn F/u cults and labs Elevation ROBER MADRID MD Mar 28, 2019 09:48
[2019-03-28] MEDS ORDERED: VANCOMYCIN 1.75 GM in IV NORMAL SALINE 500ML BAG 500 ML IV SCH (10:00)
[2019-03-28] MEDS: VANCOMYCIN PER PHARMACY MC PRN (10:05)
--- NOTE | 2019-03-28 10:06 | NUR ---
Pharmacy Vancomycin Dosing Note S:Consulted to monitor and dose vancomycin started 03/26/19. O:DEMI BROWN is a 48 year old M with Cellulitis Sepsis . Height: 6 feet, 1 inches Weight: 118.354627 kg [place] Body Weight: 79.90 Adjusted Body Weight: 95.14 Dosing Weight: Actual Other Antibiotics: CLINDA, ZOSYN LABS: Last BUN: 8 Last Creatinine: 0.9 Creatinine Clearance: >120 mL/min Last WBC: 11.7 Last Procalcitonin: 0.68 Tmax (past 24 hours): 99.1 Microbiology: 03/28: BCX 03/26 NG I/O: 1050/5 Drug Levels: Last Trough level: 11.1 on 03/28/19 at 0830 Last dose given 03/27/19 at 2100 Vancomycin Dosing: Loading Dose: 2000 mg x1 Dosing Weight: Actual Target Trough: 15-20 A: Based on: SUBTHERAPEUTIC TROUGH FOR INDICATION, P: 1. INITIATE NEW REGIMEN OF Vancomycin 1750 mg IV q8h 2. Follow up Trough level on 03/29/19 at 0930 3. Pharmacy will continue to monitor, follow and adjust therapy as needed. [facility], 03/28/19 [id number]
--- NOTE | 2019-03-28 10:11 | PDOC ---
PROGRESS NOTES History of Present Illness History of Present Illness VTE Prophylaxis Ordered VTE Prophylaxis Devices: No VTE Pharmacological Prophylaxi: Yes Assessment/Plan Assessment/Plan IMPRESSION ACUTE ON RECURRENT CELLULITIS OF LEGS SEPSIS History of methamphetamine abuse. MORBID OBESITY No sonographic evidence of acute DVT of the bilateral lower extremity deep veins. 03/26 US Enlarged left groin lymph node, nonspecific likely reactive. D/C IV clindamycin, CONTINUE IV vancomycin and Zosyn. labs and cultures, elevation. DVT PROPHYLAXIS 37 MIN PT EXAM, CHART REVIEW, > 50% OF TIME SPENT WITH EXAM, CHART REVIEW, PT CARE COORDINATION Vitals Vitals Vital Signs Date Time Temp Pulse Resp B/P (MAP) Pulse Ox O2 Delivery O2 Flow Rate FiO2 03/28/19 08:00 Room Air 03/28/19 07:30 97.7 76 16 113/82 (92) 97 97.7 Physical Exam Physical Exam CONSTITUTIONAL: He is cooperative. He is in no acute distress, looks comfortable. He is lying in bed. HEENT: Pupils equal and reactive. He has normal conjunctivae. Oral cavity, pharynx has questionable dentition. NECK: Supple. Good range of motion. LUNGS: Clear to auscultation bilaterally. HEART: S1, S2, without murmur. ABDOMEN: Obese, soft, nontender, no guarding or rebound. EXTREMITIES: Without clubbing, cyanosis. Left lower extremity has erythema about the tibial area that is warm. Does have some mild tracking up through the medial aspect of the leg, has some discomfort in his left groin area. Right thigh has some mild irritation and some erythema. SKIN: Warm to touch without generalized signs of rash. Does have some scratches that are healing on his left lower extremity and his right lower extremity as well. NEUROLOGIC: He is nonfocal. PSYCHIATRIC: Affect is appropriate. General: Alert, Oriented X3, Cooperative Heart: Regular rate Lungs: Clear Abdomen: Normal bowel sounds, Soft, No tenderness Extremities: No cyanosis Labs LABS Indication: Left lower quadrant abdominal pain. Left groin pain for several days. Allergy to iodinated contrast. Exposure: One or more of the following individualized dose reduction techniques were utilized for this examination: 1. Automated exposure control 2. Adjustment of the mA and/or kV according to patient size 3. Use of iterative reconstruction technique. Comparison: None are available. Technique: No intravenous contrast given. No oral contrast per request. Findings: Evaluation of solid viscera, bowel and vasculature is compromised by the noncontrast technique. Lung bases are clear. Small area of hyperdensity in the inferior right lobe of liver, series 2, image 42, measuring no more than 2 cm long axis. Spleen not enlarged. Pancreas unremarkable. No evidence of adrenal mass. No evidence of urolithiasis. Mild low-density in the renal pelves bilaterally may be a slightly prominent collecting system or small parapelvic cysts. No overt hydronephroureter. Gallstone identified within a nondistended gallbladder. Aorta is nonaneurysmal. Small inguinal lymph nodes are identified, measuring up to 1 cm in short axis. No significant small bowel distention. No evidence of acute colitis. The appendix appears normal. No evidence of pneumoperitoneum or significant ascites. No evidence of pelvic mass. No significant urinary bladder wall thickening. Multilevel degenerative spondylosis. Mild anterior subluxation of L5 on S1. Bilateral L5 spondylolysis. No acute fracture identified. No aggressive bone destruction. IMPRESSION: 1. Cholelithiasis. 2. No evidence of urinary tract calculus or obstruction 3. Degenerative spondylosis. Spondylolysis with spondylolisthesis at the lumbosacral junction. 4. Small irregular 2 cm hyperdense lesion at the inferior right lobe of liver. This could represent a hemangioma but is nonspecific. Outpatient MR could be of benefit for further evaluation. 5. Borderline enlarged inguinal lymph nodes bilaterally. These are nonspecific but could be reactive. Electronically signed by: Angel Vigil MD (02/16/2019 1:15 PM) [id number] Laboratory Tests Test 03/28/19 08:30 White Blood Count 11.7 x10^3/uL (4.0-11.0) Red Blood Count 4.41 x10^6/uL (4.30-5.70) Hemoglobin 13.0 g/dL (13.0-17.5) Hematocrit 39.9 % (39.0-53.0) Mean Corpuscular Volume 91 fL (79-100) Mean Corpuscular Hemoglobin 30 pg (25-35) Mean Corpuscular Hemoglobin Concent 33 g/dL (31-37) Red Cell Distribution Width 14.8 % (11.5-14.5) Platelet Count 227 x10^3/uL (140-400) Neutrophils (%) (Auto) 79 % (31-73) Lymphocytes (%) (Auto) 8 % (24-48) Monocytes (%) (Auto) 10 % (0-9) Eosinophils (%) (Auto) 3 % (0-3) Basophils (%) (Auto) 0 % (0-3) Neutrophils # (Auto) 9.3 x10^3/uL (1.8-7.7) Lymphocytes # (Auto) 0.9 x10^3/uL (1.0-4.8) Monocytes # (Auto) 1.1 x10^3/uL (0.0-1.1) Eosinophils # (Auto) 0.4 x10^3/uL (0.0-0.7) Basophils # (Auto) 0.0 x10^3/uL (0.0-0.2) Sodium Level 141 mmol/L (136-145) Potassium Level 4.3 mmol/L (3.5-5.1) Chloride Level 105 mmol/L (98-107) Carbon Dioxide Level 30 mmol/L (21-32) Anion Gap 6 (6-14) Blood Urea Nitrogen 8 mg/dL (8-26) Creatinine 0.9 mg/dL (0.7-1.3) Estimated GFR (Cockcroft-Gault) 89.7 Glucose Level 87 mg/dL (70-99) Calcium Level 8.2 mg/dL (8.5-10.1) Vancomycin Level Trough 11.1 mcg/mL (10.0-20.0) Vancomycin Last Dose Date Unknown Vancomycin Last Dose Time Unknown Assessment and Plan Assessmemt and Plan Problems Medical Problems: (1) Leukocytosis Status: Acute Comment Review of Relevant I have reviewed the following items fabian (where applicable) has been applied. Labs Laboratory Tests Test 03/26/19 20:03 03/27/19 03:20 03/28/19 08:30 White Blood Count 35.8 x10^3/uL (4.0-11.0) 26.8 x10^3/uL (4.0-11.0) 11.7 x10^3/uL (4.0-11.0) Red Blood Count 4.73 x10^6/uL (4.30-5.70) 4.41 x10^6/uL (4.30-5.70) 4.41 x10^6/uL (4.30-5.70) Hemoglobin 14.3 g/dL (13.0-17.5) 13.3 g/dL (13.0-17.5) 13.0 g/dL (13.0-17.5) Hematocrit 42.1 % (39.0-53.0) 39.2 % (39.0-53.0) 39.9 % (39.0-53.0) Mean Corpuscular Volume 89 fL (79-100) 89 fL (79-100) 91 fL (79-100) Mean Corpuscular Hemoglobin 30 pg (25-35) 30 pg (25-35) 30 pg (25-35) Mean Corpuscular Hemoglobin Concent 34 g/dL (31-37) 34 g/dL (31-37) 33 g/dL (31-37) Red Cell Distribution Width 14.3 % (11.5-14.5) 14.5 % (11.5-14.5) 14.8 % (11.5-14.5) Platelet Count 247 x10^3/uL (140-400) 225 x10^3/uL (140-400) 227 x10^3/uL (140-400) Neutrophils (%) (Auto) 95 % (31-73) 96 % (31-73) 79 % (31-73) Lymphocytes (%) (Auto) 1 % (24-48) 1 % (24-48) 8 % (24-48) Monocytes (%) (Auto) 3 % (0-9) 3 % (0-9) 10 % (0-9) Eosinophils (%) (Auto) 0 % (0-3) 0 % (0-3) 3 % (0-3) Basophils (%) (Auto) 1 % (0-3) 0 % (0-3) 0 % (0-3) Neutrophils # (Auto) 33.9 x10^3/uL (1.8-7.7) 25.7 x10^3/uL (1.8-7.7) 9.3 x10^3/uL (1.8-7.7) Lymphocytes # (Auto) 0.5 x10^3/uL (1.0-4.8) 0.3 x10^3/uL (1.0-4.8) 0.9 x10^3/uL (1.0-4.8) Monocytes # (Auto) 1.1 x10^3/uL (0.0-1.1) 0.7 x10^3/uL (0.0-1.1) 1.1 x10^3/uL (0.0-1.1) Eosinophils # (Auto) 0.0 x10^3/uL (0.0-0.7) 0.0 x10^3/uL (0.0-0.7) 0.4 x10^3/uL (0.0-0.7) Basophils # (Auto) 0.2 x10^3/uL (0.0-0.2) 0.1 x10^3/uL (0.0-0.2) 0.0 x10^3/uL (0.0-0.2) Segmented Neutrophils % 80 % (35-66) Band Neutrophils % 16 % (0-9) Lymphocytes % 2 % (24-48) Monocytes % 2 % (0-10) Platelet Estimate Adequate (ADEQUATE) Erythrocyte Sedimentation Rate 18 (0-15) Sodium Level 137 mmol/L (136-145) 138 mmol/L (136-145) 141 mmol/L (136-145) Potassium Level 4.2 mmol/L (3.5-5.1) 3.9 mmol/L (3.5-5.1) 4.3 mmol/L (3.5-5.1) Chloride Level 99 mmol/L (98-107) 102 mmol/L (98-107) 105 mmol/L (98-107) Carbon Dioxide Level 28 mmol/L (21-32) 26 mmol/L (21-32) 30 mmol/L (21-32) Anion Gap 10 (6-14) 10 (6-14) 6 (6-14) Blood Urea Nitrogen 16 mg/dL (8-26) 13 mg/dL (8-26) 8 mg/dL (8-26) Creatinine 1.0 mg/dL (0.7-1.3) 1.0 mg/dL (0.7-1.3) 0.9 mg/dL (0.7-1.3) Estimated GFR (Cockcroft-Gault) 79.4 79.4 89.7 BUN/Creatinine Ratio 16 (6-20) 13 (6-20) Glucose Level 91 mg/dL (70-99) 99 mg/dL (70-99) 87 mg/dL (70-99) Lactic Acid Level 1.5 mmol/L (0.4-2.0) Calcium Level 9.1 mg/dL (8.5-10.1) 8.2 mg/dL (8.5-10.1) 8.2 mg/dL (8.5-10.1) Total Bilirubin 0.9 mg/dL (0.2-1.0) 0.5 mg/dL (0.2-1.0) Aspartate Amino Transf (AST/SGOT) 17 U/L (15-37) 16 U/L (15-37) Alanine Aminotransferase (ALT/SGPT) 13 U/L (16-63) 10 U/L (16-63) Alkaline Phosphatase 81 U/L (46-116) 65 U/L (46-116) C-Reactive Protein, Quantitative 60.8 mg/L (0-3.3) Total Protein 7.0 g/dL (6.4-8.2) 6.4 g/dL (6.4-8.2) Albumin 3.6 g/dL (3.4-5.0) 3.0 g/dL (3.4-5.0) Albumin/Globulin Ratio 1.1 (1.0-1.7) 0.9 (1.0-1.7) Procalcitonin 0.68 ng/mL (0.00-0.10) Vancomycin Level Trough 11.1 mcg/mL (10.0-20.0) Vancomycin Last Dose Date Unknown Vancomycin Last Dose Time Unknown Laboratory Tests Test 03/28/19 08:30 White Blood Count 11.7 x10^3/uL (4.0-11.0) Red Blood Count 4.41 x10^6/uL (4.30-5.70) Hemoglobin 13.0 g/dL (13.0-17.5) Hematocrit 39.9 % (39.0-53.0) Mean Corpuscular Volume 91 fL (79-100) Mean Corpuscular Hemoglobin 30 pg (25-35) Mean Corpuscular Hemoglobin Concent 33 g/dL (31-37) Red Cell Distribution Width 14.8 % (11.5-14.5) Platelet Count 227 x10^3/uL (140-400) Neutrophils (%) (Auto) 79 % (31-73) Lymphocytes (%) (Auto) 8 % (24-48) Monocytes (%) (Auto) 10 % (0-9) Eosinophils (%) (Auto) 3 % (0-3) Basophils (%) (Auto) 0 % (0-3) Neutrophils # (Auto) 9.3 x10^3/uL (1.8-7.7) Lymphocytes # (Auto) 0.9 x10^3/uL (1.0-4.8) Monocytes # (Auto) 1.1 x10^3/uL (0.0-1.1) Eosinophils # (Auto) 0.4 x10^3/uL (0.0-0.7) Basophils # (Auto) 0.0 x10^3/uL (0.0-0.2) Sodium Level 141 mmol/L (136-145) Potassium Level 4.3 mmol/L (3.5-5.1) Chloride Level 105 mmol/L (98-107) Carbon Dioxide Level 30 mmol/L (21-32) Anion Gap 6 (6-14) Blood Urea Nitrogen 8 mg/dL (8-26) Creatinine 0.9 mg/dL (0.7-1.3) Estimated GFR (Cockcroft-Gault) 89.7 Glucose Level 87 mg/dL (70-99) Calcium Level 8.2 mg/dL (8.5-10.1) Vancomycin Level Trough 11.1 mcg/mL (10.0-20.0) Vancomycin Last Dose Date Unknown Vancomycin Last Dose Time Unknown Microbiology 03/26/19 Blood Culture - Preliminary, Resulted NO GROWTH AFTER 1 DAY Medications Current Medications Sodium Chloride 1,000 ml @ 2,400 mls/hr Q25M IV Last administered on 03/26/19at 22:43; Start 03/26/19 at 20:30; Stop 03/26/19 at 21:29; Status DC Piperacillin Sod/ Tazobactam Sod 4.5 gm/Sodium Chloride 100 ml @ 200 mls/hr 1X ONCE IV Last administered on 03/26/19at 20:30; Start 03/26/19 at 20:30; Stop 03/26/19 at 20:59; Status DC Vancomycin HCl (Vanco Per Pharmacy) 1 each 1X ONCE MC ; Start 03/26/19 at 20:30; Stop 03/26/19 at 20:31; Status DC Acetaminophen (Tylenol) 1,000 mg 1X ONCE PO Last administered on 03/26/19at 20:31; Start 03/26/19 at 20:30; Stop 03/26/19 at 20:31; Status DC Vancomycin HCl 2 gm/Sodium Chloride 500 ml @ 250 mls/hr 1X ONCE IV Last administered on 03/26/19at 20:31; Start 03/26/19 at 20:30; Stop 03/26/19 at 22:29; Status DC Clindamycin Phosphate 50 ml @ 100 mls/hr Q8HRS IV Last administered on 9at 05:19; Start 03/26/19 at 22:00 Lactobacillus Rhamnosus (Culturelle) 1 cap BID PO Last administered on 03/28/19at 09:37; Start 03/27/19 at 09:00 Ondansetron HCl (Zofran) 4 mg PRN Q8HRS PRN IV NAUSEA/VOMITING; Start 03/26/19 at 21:30; Stop 03/27/19 at 21:29; Status DC Morphine Sulfate (Morphine Sulfate) 4 mg PRN Q2HR PRN IV PAIN Last administered on 03/27/19at 16:58; Start 03/26/19 at 21:30; Stop 03/27/19 at 19:28; Status DC Acetaminophen (Tylenol) 650 mg PRN Q4HRS PRN PO FEVER Last administered on at 03:46; Start 03/26/19 at 21:30; Stop 03/27/19 at 21:29; Status DC Sodium Chloride 1,000 ml @ 125 mls/hr 1X ONCE IV ; Start 03/26/19 at 21:30; Stop 03/27/19 at 05:29; Status DC Influenza Virus Vaccine Quadrival (Afluria Quad 2019-20 (3yr Up) Syringe) 0.5 ml ONCE ONCE VAX IM ; Start 03/27/19 at 09:00; Stop 03/27/19 at 09:01; Status DC Info (FLU VACCINE SCREEN per RX) 1 each PRN 1X PRN MC SEE COMMENTS; Start 03/26/19 at 23:45; Status Cancel Piperacillin Sod/ Tazobactam Sod 4.5 gm/Sodium Chloride 100 ml @ 200 mls/hr Q6HRS IV Last administered on 03/28/19at 05:15; Start 03/27/19 at 12:00 Vancomycin HCl (Vanco Per Pharmacy) 1 each PRN DAILY PRN MC SEE COMMENTS Last administered on 03/28/19at 10:05; Start 03/27/19 at 08:30 Vancomycin HCl 2 gm/Sodium Chloride 500 ml @ 250 mls/hr Q12H IV Last administered on 03/27/19at 21:03; Start 03/27/19 at 09:00; Stop 03/28/19 at 09:37; Status DC Vancomycin HCl (Vancomycin Trough Level) 1 each 1X ONCE MC ; Start 03/28/19 at 08:30; Stop 03/28/19 at 08:31; Status DC Ondansetron HCl (Zofran) 4 mg STK-MED ONCE .ROUTE ; Start 03/27/19 at 12:03; Stop 03/27/19 at 12:04; Status DC Sevoflurane (Ultane) 15 ml STK-MED ONCE IH ; Start 03/27/19 at 12:03; Stop 03/27/19 at 12:04; Status DC Propofol 0 ml @ As Directed STK-MED ONCE IV ; Start 03/27/19 at 12:04; Stop 03/27/19 at 12:04; Status DC Lidocaine HCl (Lidocaine Pf 2% Vial) 5 ml STK-MED ONCE .ROUTE ; Start 03/27/19 at 12:04; Stop 03/27/19 at 12:04; Status DC Enoxaparin Sodium (Lovenox 40mg Syringe) 40 mg Q24H SQ Last administered on 03/27/19at 13:08; Start 03/27/19 at 13:00 Acetaminophen/ Hydrocodone Bitart (Lortab 5/325) 1 tab PRN Q4HRS PRN PO PAIN Last administered on 03/27/19at 21:04; Start 03/27/19 at 19:30 Fentanyl Citrate (Fentanyl 2ml Vial) 50 mcg PRN Q2HR PRN IVP PAIN, 2nd CHOICE Last administered on 03/27/19at 23:01; Start 03/27/19 at 19:30 Morphine Sulfate (Morphine Sulfate) 2 mg PRN Q2HR PRN IV PAIN, 1st CHOICE; Start 03/27/19 at 19:30 Vancomycin HCl 1.75 gm/Sodium Chloride 500 ml @ 250 mls/hr Q12H IV ; Start 03/28/19 at 10:00; Status Cancel Vancomycin HCl (Vancomycin Trough Level) 1 each 1X ONCE MC ; Start 03/29/19 at 09:30; Stop 03/29/19 at 09:31 Vancomycin HCl 1.75 gm/Sodium Chloride 500 ml @ 250 mls/hr Q8H IV ; Start 03/28/19 at 10:00 Active Scripts Active Vitals/I & O Vital Sign - Last 24 Hours 03/27/19 03/27/19 03/27/19 03/27/19 11:04 11:34 14:20 16:58 Temp 99.4 99.0 99.4 99.0 Pulse 90 95 Resp 20 16 B/P (MAP) 159/88 (111) 153/84 (107) Pulse Ox 99 98 98 98 O2 Delivery Room Air Room Air Room Air Room Air 03/27/19 03/27/19 03/27/19 03/27/19 19:30 20:05 21:04 21:04 Temp 99.1 99.1 Pulse 101 Resp 16 B/P (MAP) 113/72 (86) Pulse Ox 94 O2 Delivery Room Air Room Air Room Air Room Air 03/27/19 03/27/19 03/27/19 03/27/19 21:43 22:04 23:01 23:31 Pulse Ox 94 O2 Delivery Room Air Room Air Room Air Room Air 03/27/19 03/28/19 03/28/19 03/28/19 23:43 03:01 07:30 08:00 Temp 98.9 98.2 97.7 98.9 98.2 97.7 Pulse 90 73 76 Resp 16 16 16 B/P (MAP) 127/65 (85) 134/83 (100) 113/82 (92) Pulse Ox 96 96 97 O2 Delivery Room Air Room Air Room Air Room Air Intake and Output 03/27/19 03/27/19 03/28/19 15:00 23:00 07:00 Intake Total 600 ml 450 ml Balance 600 ml 450 ml MARICARMEN LEIGH MD Mar 28, 2019 10:11
[2019-03-28] MEDS: VANCOMYCIN 1.75 GM in IV NORMAL SALINE 500ML BAG 500 ML IV SCH ×2 (10:52→18:31)
[2019-03-28 11:38] VITALS: BP 134/80
[2019-03-28] MEDS: ENOXAPARIN 40 MG/0.4 ML SYRINGE. SQ SCH (13:32)
--- NOTE | 2019-03-28 14:50 | RAD ---
DUPLEX SONOGRAPHY OF THE PERIPHERAL ARTERIAL SYSTEM OF BOTH LOWER EXTREMITIES Clinical indications: Peripheral vascular disease. Findings: Duplex sonography of the peripheral arterial system of both lower extremities including nava scale and color flow and spectral waveform analysis was performed.Triphasic waveforms are seen throughout the right leg. Triphasic and biphasic waveforms are seen throughout the left leg. The left peroneal artery is not visualized and therefore may be occluded. No significant plaque formation or stenosis is identified is seen elsewhere. The measurements were performed using the NASCET criteria. Peak systolic flow velocities are as follows: Right leg: common femoral artery- 138 cm/sec, profunda femoral artery -50 cm/sec, proximal superficial femoral artery -122 cm/sec, mid superficial femoral artery -121 cm/sec, distal superficial femoral artery- 113 cm/sec, popliteal artery -63 cm/sec, proximal posterior tibial artery- 82 cm/sec, distal posterior tibial artery- 65 cm/sec, peroneal artery- 69 cm/sec, anterior tibial artery- 70 cm/sec, dorsalis pedis artery -71 cm/sec. Left leg: common femoral artery- 115 cm/sec, profunda femoral artery -45 cm/sec, proximal superficial femoral artery- 125cm/sec, mid superficial femoral artery- 114 cm/sec, distal superficial femoral artery- 103 cm/sec, popliteal artery -102 cm/sec, proximal posterior tibial artery -74 cm/sec, distal posterior tibial artery- 80 cm/sec, peroneal artery -0 cm/sec, anterior tibial artery -79 cm/sec, dorsalis pedis artery- 96 cm/sec. Impression: Left peroneal artery is not visualized and therefore may be occluded. No occlusive disease or significant stenosis is seen elsewhere. Left groin lymph nodes are seen. Largest measures 3.4 cm in size. Recommend clinical follow-up with regard to any enlarging left groin lymph nodes. Surgical clips were seen here on a recent CT study dated February 16, 2019. Electronically signed by: Puma Alvarado MD (03/28/2019 2:47 PM) [id number]
[2019-03-28 15:00] VITALS: BP 139/78
[2019-03-28 19:42] VITALS: BP 116/56
[2019-03-28] MEDS: fentaNYL PF VIAL 100 MCG/2 ML VIAL IVP PRN ×2 (21:04→23:05)
[2019-03-28 22:17] LABS: BARBITURATES NEG (NEG); BENZODIAZEPINES NEG (NEG); CANNABINOIDS NEG (NEG); COCAINE NEG (NEG); METHADONE NEG (NEG); OPIATES NEG (NEG); PHENCYCLIDINE NEG (NEG)
[2019-03-28 22:18] LABS: AMPHETAMINE/METHAMPHETAMINE POS (NEG)
[2019-03-28 23:44] VITALS: BP 139/55
[2019-03-29 03:46] VITALS: BP 113/66
[2019-03-29 05:04] LABS: BASO # 0.1 x10^3/uL (0.0-0.2); BASO % 1 % (0-3); EOS # 0.5 x10^3/uL (0.0-0.7); EOS % 5 % (0-3); HEMATOCRIT 40.4 % (39.0-53.0); HEMOGLOBIN 13.5 g/dL (13.0-17.5); LYMPH # 1.5 x10^3/uL (1.0-4.8); LYMPH % 15 % (24-48); MEAN CORPUSCULAR HEMOGLOBIN 30 pg (25-35); MEAN CORPUSCULAR HGB CONC 34 g/dL (31-37); MEAN CORPUSCULAR VOLUME 90 fL (79-100); MONO % 10 % (0-9); NEUT # 7.1 x10^3/uL (1.8-7.7); NEUT % 69 % (31-73); PLATELET COUNT 265 x10^3/uL (140-400); RED BLOOD COUNT 4.51 x10^6/uL (4.30-5.70); RED CELL DISTRIBUTION WIDTH 14.5 % (11.5-14.5); WHITE BLOOD COUNT 10.2 x10^3/uL (4.0-11.0)
[2019-03-29] MEDS: PIPERACILLIN/TAZOBACTAM 4.5 GM in IV NORMAL SALINE 100ML 100 ML IV SCH ×3 (05:06→18:16)
[2019-03-29] MEDS: fentaNYL PF VIAL 100 MCG/2 ML VIAL IVP PRN (05:09)
[2019-03-29 06:03] LABS: ALBUMIN 2.8 g/dL (3.4-5.0); ALBUMIN/GLOBULIN RATIO 0.7 (1.0-1.7); CALCIUM 8.5 mg/dL (8.5-10.1); GFR 79.4; POTASSIUM 3.7 mmol/L (3.5-5.1); TOTAL BILIRUBIN 0.2 mg/dL (0.2-1.0); TOTAL PROTEIN 6.7 g/dL (6.4-8.2)
[2019-03-29] MEDS: VANCOMYCIN 1.75 GM in IV NORMAL SALINE 500ML BAG 500 ML IV SCH ×3 (06:05→19:25)
[2019-03-29 07:00] VITALS: BP 135/58
--- NOTE | 2019-03-29 08:20 | PDOC ---
PROGRESS NOTES History of Present Illness History of Present Illness VTE Prophylaxis Ordered VTE Prophylaxis Devices: No VTE Pharmacological Prophylaxi: Yes Assessment/Plan Assessment/Plan IMPRESSION ACUTE ON RECURRENT CELLULITIS OF LEGS SEPSIS History of methamphetamine abuse. MORBID OBESITY No sonographic evidence of acute DVT of the bilateral lower extremity deep veins. 03/26 US Enlarged left groin lymph node, nonspecific likely reactive. Left peroneal artery is not visualized and therefore may be occluded. No occlusive disease or significant stenosis is seen elsewhere. Left groin lymph nodes measures 3.4 cm in size. Recommend clinical follow-up with regard to any enlarging left groin lymph nodes. Small irregular 2 cm hyperdense lesion at the inferior right lobe of liver. This could represent a hemangioma but // nonspecific. Outpatient MR could be of benefit admit CONTINUE IV vancomycin and Zosyn. labs and cultures, elevation. DVT PROPHYLAXIS drug cessation needed POOR PROGNOSIS FOR HEALING DUE TO ILLICIT DRUG USE 28 MIN PT EXAM, CHART REVIEW, > 50% OF TIME SPENT WITH EXAM, CHART REVIEW, PT CARE COORDINATION Vitals Vitals Vital Signs Date Time Temp Pulse Resp B/P (MAP) Pulse Ox O2 Delivery O2 Flow Rate FiO2 03/29/19 07:00 98.1 77 18 135/58 (83) 99 Room Air 98.1 Physical Exam Physical Exam CONSTITUTIONAL: He is cooperative. He is in no acute distress, looks comfortable. He is lying in bed. HEENT: Pupils equal and reactive. He has normal conjunctivae. Oral cavity, pharynx has questionable dentition. NECK: Supple. Good range of motion. LUNGS: Clear to auscultation bilaterally. HEART: S1, S2, without murmur. ABDOMEN: Obese, soft, nontender, no guarding or rebound. EXTREMITIES: Without clubbing, cyanosis. Left lower extremity has erythema about the tibial area that is warm. Does have some mild tracking up through the medial aspect of the leg, has some discomfort in his left groin area. Right thigh has some mild irritation and some erythema. SKIN: Warm to touch without generalized signs of rash. Does have some scratches that are healing on his left lower extremity and his right lower extremity as well. NEUROLOGIC: He is nonfocal. PSYCHIATRIC: Affect is appropriate. General: Alert, Oriented X3, Cooperative Heart: Regular rate Lungs: Clear Abdomen: Normal bowel sounds, Soft, No tenderness Extremities: No cyanosis Labs LABS Laboratory Tests Test 03/28/19 08:30 03/28/19 21:30 03/29/19 03:40 White Blood Count 11.7 x10^3/uL (4.0-11.0) 10.2 x10^3/uL (4.0-11.0) Red Blood Count 4.41 x10^6/uL (4.30-5.70) 4.51 x10^6/uL (4.30-5.70) Hemoglobin 13.0 g/dL (13.0-17.5) 13.5 g/dL (13.0-17.5) Hematocrit 39.9 % (39.0-53.0) 40.4 % (39.0-53.0) Mean Corpuscular Volume 91 fL (79-100) 90 fL (79-100) Mean Corpuscular Hemoglobin 30 pg (25-35) 30 pg (25-35) Mean Corpuscular Hemoglobin Concent 33 g/dL (31-37) 34 g/dL (31-37) Red Cell Distribution Width 14.8 % (11.5-14.5) 14.5 % (11.5-14.5) Platelet Count 227 x10^3/uL (140-400) 265 x10^3/uL (140-400) Neutrophils (%) (Auto) 79 % (31-73) 69 % (31-73) Lymphocytes (%) (Auto) 8 % (24-48) 15 % (24-48) Monocytes (%) (Auto) 10 % (0-9) 10 % (0-9) Eosinophils (%) (Auto) 3 % (0-3) 5 % (0-3) Basophils (%) (Auto) 0 % (0-3) 1 % (0-3) Neutrophils # (Auto) 9.3 x10^3/uL (1.8-7.7) 7.1 x10^3/uL (1.8-7.7) Lymphocytes # (Auto) 0.9 x10^3/uL (1.0-4.8) 1.5 x10^3/uL (1.0-4.8) Monocytes # (Auto) 1.1 x10^3/uL (0.0-1.1) 1.0 x10^3/uL (0.0-1.1) Eosinophils # (Auto) 0.4 x10^3/uL (0.0-0.7) 0.5 x10^3/uL (0.0-0.7) Basophils # (Auto) 0.0 x10^3/uL (0.0-0.2) 0.1 x10^3/uL (0.0-0.2) Sodium Level 141 mmol/L (136-145) 141 mmol/L (136-145) Potassium Level 4.3 mmol/L (3.5-5.1) 3.7 mmol/L (3.5-5.1) Chloride Level 105 mmol/L (98-107) 103 mmol/L (98-107) Carbon Dioxide Level 30 mmol/L (21-32) 27 mmol/L (21-32) Anion Gap 6 (6-14) 11 (6-14) Blood Urea Nitrogen 8 mg/dL (8-26) 7 mg/dL (8-26) Creatinine 0.9 mg/dL (0.7-1.3) 1.0 mg/dL (0.7-1.3) Estimated GFR (Cockcroft-Gault) 89.7 79.4 Glucose Level 87 mg/dL (70-99) 94 mg/dL (70-99) Calcium Level 8.2 mg/dL (8.5-10.1) 8.5 mg/dL (8.5-10.1) Vancomycin Level Trough 11.1 mcg/mL (10.0-20.0) Vancomycin Last Dose Date Unknown Vancomycin Last Dose Time Unknown Urine Opiates Screen Neg (NEG) Urine Methadone Screen Neg (NEG) Urine Barbiturates Neg (NEG) Urine Phencyclidine Screen Neg (NEG) Urine Amphetamine/Methamphetamine Pos (NEG) Urine Benzodiazepines Screen Neg (NEG) Urine Cocaine Screen Neg (NEG) Urine Cannabinoids Screen Neg (NEG) Urine Ethyl Alcohol Neg (NEG) BUN/Creatinine Ratio 7 (6-20) Total Bilirubin 0.2 mg/dL (0.2-1.0) Aspartate Amino Transf (AST/SGOT) 16 U/L (15-37) Alanine Aminotransferase (ALT/SGPT) 11 U/L (16-63) Alkaline Phosphatase 75 U/L (46-116) Total Protein 6.7 g/dL (6.4-8.2) Albumin 2.8 g/dL (3.4-5.0) Albumin/Globulin Ratio 0.7 (1.0-1.7) Assessment and Plan Assessmemt and Plan Problems Medical Problems: (1) Leukocytosis Status: Acute Comment Review of Relevant I have reviewed the following items fabian (where applicable) has been applied. Labs Laboratory Tests Test 03/28/19 08:30 03/28/19 21:30 03/29/19 03:40 White Blood Count 11.7 x10^3/uL (4.0-11.0) 10.2 x10^3/uL (4.0-11.0) Red Blood Count 4.41 x10^6/uL (4.30-5.70) 4.51 x10^6/uL (4.30-5.70) Hemoglobin 13.0 g/dL (13.0-17.5) 13.5 g/dL (13.0-17.5) Hematocrit 39.9 % (39.0-53.0) 40.4 % (39.0-53.0) Mean Corpuscular Volume 91 fL (79-100) 90 fL (79-100) Mean Corpuscular Hemoglobin 30 pg (25-35) 30 pg (25-35) Mean Corpuscular Hemoglobin Concent 33 g/dL (31-37) 34 g/dL (31-37) Red Cell Distribution Width 14.8 % (11.5-14.5) 14.5 % (11.5-14.5) Platelet Count 227 x10^3/uL (140-400) 265 x10^3/uL (140-400) Neutrophils (%) (Auto) 79 % (31-73) 69 % (31-73) Lymphocytes (%) (Auto) 8 % (24-48) 15 % (24-48) Monocytes (%) (Auto) 10 % (0-9) 10 % (0-9) Eosinophils (%) (Auto) 3 % (0-3) 5 % (0-3) Basophils (%) (Auto) 0 % (0-3) 1 % (0-3) Neutrophils # (Auto) 9.3 x10^3/uL (1.8-7.7) 7.1 x10^3/uL (1.8-7.7) Lymphocytes # (Auto) 0.9 x10^3/uL (1.0-4.8) 1.5 x10^3/uL (1.0-4.8) Monocytes # (Auto) 1.1 x10^3/uL (0.0-1.1) 1.0 x10^3/uL (0.0-1.1) Eosinophils # (Auto) 0.4 x10^3/uL (0.0-0.7) 0.5 x10^3/uL (0.0-0.7) Basophils # (Auto) 0.0 x10^3/uL (0.0-0.2) 0.1 x10^3/uL (0.0-0.2) Sodium Level 141 mmol/L (136-145) 141 mmol/L (136-145) Potassium Level 4.3 mmol/L (3.5-5.1) 3.7 mmol/L (3.5-5.1) Chloride Level 105 mmol/L (98-107) 103 mmol/L (98-107) Carbon Dioxide Level 30 mmol/L (21-32) 27 mmol/L (21-32) Anion Gap 6 (6-14) 11 (6-14) Blood Urea Nitrogen 8 mg/dL (8-26) 7 mg/dL (8-26) Creatinine 0.9 mg/dL (0.7-1.3) 1.0 mg/dL (0.7-1.3) Estimated GFR (Cockcroft-Gault) 89.7 79.4 Glucose Level 87 mg/dL (70-99) 94 mg/dL (70-99) Calcium Level 8.2 mg/dL (8.5-10.1) 8.5 mg/dL (8.5-10.1) Vancomycin Level Trough 11.1 mcg/mL (10.0-20.0) Vancomycin Last Dose Date Unknown Vancomycin Last Dose Time Unknown Urine Opiates Screen Neg (NEG) Urine Methadone Screen Neg (NEG) Urine Barbiturates Neg (NEG) Urine Phencyclidine Screen Neg (NEG) Urine Amphetamine/Methamphetamine Pos (NEG) Urine Benzodiazepines Screen Neg (NEG) Urine Cocaine Screen Neg (NEG) Urine Cannabinoids Screen Neg (NEG) Urine Ethyl Alcohol Neg (NEG) BUN/Creatinine Ratio 7 (6-20) Total Bilirubin 0.2 mg/dL (0.2-1.0) Aspartate Amino Transf (AST/SGOT) 16 U/L (15-37) Alanine Aminotransferase (ALT/SGPT) 11 U/L (16-63) Alkaline Phosphatase 75 U/L (46-116) Total Protein 6.7 g/dL (6.4-8.2) Albumin 2.8 g/dL (3.4-5.0) Albumin/Globulin Ratio 0.7 (1.0-1.7) Laboratory Tests Test 03/28/19 08:30 03/28/19 21:30 03/29/19 03:40 White Blood Count 11.7 x10^3/uL (4.0-11.0) 10.2 x10^3/uL (4.0-11.0) Red Blood Count 4.41 x10^6/uL (4.30-5.70) 4.51 x10^6/uL (4.30-5.70) Hemoglobin 13.0 g/dL (13.0-17.5) 13.5 g/dL (13.0-17.5) Hematocrit 39.9 % (39.0-53.0) 40.4 % (39.0-53.0) Mean Corpuscular Volume 91 fL (79-100) 90 fL (79-100) Mean Corpuscular Hemoglobin 30 pg (25-35) 30 pg (25-35) Mean Corpuscular Hemoglobin Concent 33 g/dL (31-37) 34 g/dL (31-37) Red Cell Distribution Width 14.8 % (11.5-14.5) 14.5 % (11.5-14.5) Platelet Count 227 x10^3/uL (140-400) 265 x10^3/uL (140-400) Neutrophils (%) (Auto) 79 % (31-73) 69 % (31-73) Lymphocytes (%) (Auto) 8 % (24-48) 15 % (24-48) Monocytes (%) (Auto) 10 % (0-9) 10 % (0-9) Eosinophils (%) (Auto) 3 % (0-3) 5 % (0-3) Basophils (%) (Auto) 0 % (0-3) 1 % (0-3) Neutrophils # (Auto) 9.3 x10^3/uL (1.8-7.7) 7.1 x10^3/uL (1.8-7.7) Lymphocytes # (Auto) 0.9 x10^3/uL (1.0-4.8) 1.5 x10^3/uL (1.0-4.8) Monocytes # (Auto) 1.1 x10^3/uL (0.0-1.1) 1.0 x10^3/uL (0.0-1.1) Eosinophils # (Auto) 0.4 x10^3/uL (0.0-0.7) 0.5 x10^3/uL (0.0-0.7) Basophils # (Auto) 0.0 x10^3/uL (0.0-0.2) 0.1 x10^3/uL (0.0-0.2) Sodium Level 141 mmol/L (136-145) 141 mmol/L (136-145) Potassium Level 4.3 mmol/L (3.5-5.1) 3.7 mmol/L (3.5-5.1) Chloride Level 105 mmol/L (98-107) 103 mmol/L (98-107) Carbon Dioxide Level 30 mmol/L (21-32) 27 mmol/L (21-32) Anion Gap 6 (6-14) 11 (6-14) Blood Urea Nitrogen 8 mg/dL (8-26) 7 mg/dL (8-26) Creatinine 0.9 mg/dL (0.7-1.3) 1.0 mg/dL (0.7-1.3) Estimated GFR (Cockcroft-Gault) 89.7 79.4 Glucose Level 87 mg/dL (70-99) 94 mg/dL (70-99) Calcium Level 8.2 mg/dL (8.5-10.1) 8.5 mg/dL (8.5-10.1) Vancomycin Level Trough 11.1 mcg/mL (10.0-20.0) Vancomycin Last Dose Date Unknown Vancomycin Last Dose Time Unknown Urine Opiates Screen Neg (NEG) Urine Methadone Screen Neg (NEG) Urine Barbiturates Neg (NEG) Urine Phencyclidine Screen Neg (NEG) Urine Amphetamine/Methamphetamine Pos (NEG) Urine Benzodiazepines Screen Neg (NEG) Urine Cocaine Screen Neg (NEG) Urine Cannabinoids Screen Neg (NEG) Urine Ethyl Alcohol Neg (NEG) BUN/Creatinine Ratio 7 (6-20) Total Bilirubin 0.2 mg/dL (0.2-1.0) Aspartate Amino Transf (AST/SGOT) 16 U/L (15-37) Alanine Aminotransferase (ALT/SGPT) 11 U/L (16-63) Alkaline Phosphatase 75 U/L (46-116) Total Protein 6.7 g/dL (6.4-8.2) Albumin 2.8 g/dL (3.4-5.0) Albumin/Globulin Ratio 0.7 (1.0-1.7) Microbiology 03/26/19 Blood Culture - Preliminary, Resulted NO GROWTH AFTER 2 DAYS Medications Current Medications Sodium Chloride 1,000 ml @ 2,400 mls/hr Q25M IV Last administered on 03/26/19at 22:43; Start 03/26/19 at 20:30; Stop 03/26/19 at 21:29; Status DC Piperacillin Sod/ Tazobactam Sod 4.5 gm/Sodium Chloride 100 ml @ 200 mls/hr 1X ONCE IV Last administered on 03/26/19at 20:30; Start 03/26/19 at 20:30; Stop 03/26/19 at 20:59; Status DC Vancomycin HCl (Vanco Per Pharmacy) 1 each 1X ONCE MC ; Start 03/26/19 at 20:30; Stop 03/26/19 at 20:31; Status DC Acetaminophen (Tylenol) 1,000 mg 1X ONCE PO Last administered on 03/26/19at 20:31; Start 03/26/19 at 20:30; Stop 03/26/19 at 20:31; Status DC Vancomycin HCl 2 gm/Sodium Chloride 500 ml @ 250 mls/hr 1X ONCE IV Last administered on 03/26/19at 20:31; Start 03/26/19 at 20:30; Stop 03/26/19 at 22:29; Status DC Clindamycin Phosphate 50 ml @ 100 mls/hr Q8HRS IV Last administered on 03/28/19at 05:19; Start 03/26/19 at 22:00; Stop 03/28/19 at 10:45; Status DC Lactobacillus Rhamnosus (Culturelle) 1 cap BID PO Last administered on 03/28/19 at 23:01; Start 03/27/19 at 09:00 Ondansetron HCl (Zofran) 4 mg PRN Q8HRS PRN IV NAUSEA/VOMITING; Start 03/26/19 at 21:30; Stop 03/27/19 at 21:29; Status DC Morphine Sulfate (Morphine Sulfate) 4 mg PRN Q2HR PRN IV PAIN Last administered on 03/27/19at 16:58; Start 03/26/19 at 21:30; Stop 03/27/19 at 19:28; Status DC Acetaminophen (Tylenol) 650 mg PRN Q4HRS PRN PO FEVER Last administered on 03/27/19at 03:46; Start 03/26/19 at 21:30; Stop 03/27/19 at 21:29; Status DC Sodium Chloride 1,000 ml @ 125 mls/hr 1X ONCE IV ; Start 03/26/19 at 21:30; Stop 03/27/19 at 05:29; Status DC Influenza Virus Vaccine Quadrival (Afluria Quad 2019-20 (3yr Up) Syringe) 0.5 ml ONCE ONCE VAX IM ; Start 03/27/19 at 09:00; Stop 03/27/19 at 09:01; Status DC Info (FLU VACCINE SCREEN per RX) 1 each PRN 1X PRN MC SEE COMMENTS; Start 03/26/19 at 23:45; Status Cancel Piperacillin Sod/ Tazobactam Sod 4.5 gm/Sodium Chloride 100 ml @ 200 mls/hr Q6HRS IV Last administered on 03/29/19at 05:06; Start 03/27/19 at 12:00 Vancomycin HCl (Vanco Per Pharmacy) 1 each PRN DAILY PRN MC SEE COMMENTS Last administered on 03/28/19at 10:05; Start 03/27/19 at 08:30 Vancomycin HCl 2 gm/Sodium Chloride 500 ml @ 250 mls/hr Q12H IV Last administered on 03/27/19at 21:03; Start 03/27/19 at 09:00; Stop 03/28/19 at 09:37; Status DC Vancomycin HCl (Vancomycin Trough Level) 1 each 1X ONCE MC Last administered on 03/28/19at 08:30; Start 03/28/19 at 08:30; Stop 03/28/19 at 08:31; Status DC Ondansetron HCl (Zofran) 4 mg STK-MED ONCE .ROUTE ; Start 03/27/19 at 12:03; Stop 03/27/19 at 12:04; Status DC Sevoflurane (Ultane) 15 ml STK-MED ONCE IH ; Start 03/27/19 at 12:03; Stop 03/27/19 at 12:04; Status DC Propofol 0 ml @ As Directed STK-MED ONCE IV ; Start 03/27/19 at 12:04; Stop 03/27/19 at 12:04; Status DC Lidocaine HCl (Lidocaine Pf 2% Vial) 5 ml STK-MED ONCE .ROUTE ; Start 03/27/19 at 12:04; Stop 03/27/19 at 12:04; Status DC Enoxaparin Sodium (Lovenox 40mg Syringe) 40 mg Q24H SQ Last administered on 03/28/19at 13:32; Start 03/27/19 at 13:00 Acetaminophen/ Hydrocodone Bitart (Lortab 5/325) 1 tab PRN Q4HRS PRN PO PAIN Last administered on 03/27/19at 21:04; Start 03/27/19 at 19:30 Fentanyl Citrate (Fentanyl 2ml Vial) 50 mcg PRN Q2HR PRN IVP PAIN, 2nd CHOICE Last administered on 03/29/19at 05:09; Start 03/27/19 at 19:30 Morphine Sulfate (Morphine Sulfate) 2 mg PRN Q2HR PRN IV PAIN, 1st CHOICE; Start 03/27/19 at 19:30 Vancomycin HCl 1.75 gm/Sodium Chloride 500 ml @ 250 mls/hr Q12H IV ; Start 03/28/19 at 10:00; Status Cancel Vancomycin HCl (Vancomycin Trough Level) 1 each 1X ONCE MC ; Start 03/29/19 at 09:30; Stop 03/29/19 at 09:31 Vancomycin HCl 1.75 gm/Sodium Chloride 500 ml @ 250 mls/hr Q8H IV Last administered on 03/29/19at 06:05; Start 03/28/19 at 10:00 Active Scripts Active Vitals/I & O Vital Sign - Last 24 Hours 03/28/19 03/28/19 03/28/19 03/28/19 11:38 15:00 19:42 21:04 Temp 98.2 99.2 99.3 98.2 99.2 99.3 Pulse 85 79 94 Resp 15 16 20 B/P (MAP) 134/80 (98) 139/78 (98) 116/56 (76) Pulse Ox 98 98 97 O2 Delivery Room Air Room Air Room Air Room Air 03/28/19 03/28/19 03/28/19 03/29/19 21:35 23:05 23:44 03:46 Temp 98.9 98.6 98.9 98.6 Pulse 91 89 Resp 20 18 B/P (MAP) 139/55 (83) 113/66 (82) Pulse Ox 97 95 O2 Delivery Room Air Room Air Room Air Room Air 03/29/19 03/29/19 03/29/19 05:09 05:48 07:00 Temp 98.1 98.1 Pulse 77 Resp 18 B/P (MAP) 135/58 (83) Pulse Ox 99 O2 Delivery Room Air Room Air Room Air Intake and Output 03/28/19 03/28/19 03/29/19 15:00 23:00 07:00 Intake Total 610 ml 800 ml 300 ml Balance 610 ml 800 ml 300 ml MARICARMEN LEIGH MD Mar 29, 2019 08:20
--- NOTE | 2019-03-29 08:36 | PDOC ---
Infectious Disease Note Subjective Subjective Better - No aches. Leg with less swelling/pain Eating well No F/C/s/N/V/d/SOA/rash/dysuria Vital Sign Vital Signs Vital Signs Date Time Temp Pulse Resp B/P (MAP) Pulse Ox O2 Delivery O2 Flow Rate FiO2 03/29/19 07:00 98.1 77 18 135/58 (83) 99 Room Air 98.1 Physical Exam PHYSICAL EXAM CONSTITUTIONAL: He is cooperative. He is in no acute distress, looks comfortable. He is lying in bed. HEENT: Pupils equal and reactive. He has normal conjunctivae. Oral cavity, pharynx has questionable dentition. NECK: Supple. Good range of motion. LUNGS: Clear to auscultation bilaterally. HEART: S1, S2, without murmur. ABDOMEN: Obese, soft, nontender, no guarding or rebound. EXTREMITIES: Without clubbing, cyanosis. Left lower extremity has less erythema about the tibial area that is warm. Does have some mild tracking up through the medial aspect of the leg, has some discomfort in his left groin area - better. Right thigh has some mild irritation and some erythema. SKIN: Warm to touch without generalized signs of rash. Does have some scratches that are healing on his left lower extremity and his right lower extremity as well. NEUROLOGIC: He is nonfocal. PSYCHIATRIC: Affect is appropriate. Labs Lab Laboratory Tests Test 03/28/19 21:30 03/29/19 03:40 Urine Opiates Screen Neg (NEG) Urine Methadone Screen Neg (NEG) Urine Barbiturates Neg (NEG) Urine Phencyclidine Screen Neg (NEG) Urine Amphetamine/Methamphetamine Pos (NEG) Urine Benzodiazepines Screen Neg (NEG) Urine Cocaine Screen Neg (NEG) Urine Cannabinoids Screen Neg (NEG) Urine Ethyl Alcohol Neg (NEG) White Blood Count 10.2 x10^3/uL (4.0-11.0) Red Blood Count 4.51 x10^6/uL (4.30-5.70) Hemoglobin 13.5 g/dL (13.0-17.5) Hematocrit 40.4 % (39.0-53.0) Mean Corpuscular Volume 90 fL (79-100) Mean Corpuscular Hemoglobin 30 pg (25-35) Mean Corpuscular Hemoglobin Concent 34 g/dL (31-37) Red Cell Distribution Width 14.5 % (11.5-14.5) Platelet Count 265 x10^3/uL (140-400) Neutrophils (%) (Auto) 69 % (31-73) Lymphocytes (%) (Auto) 15 % (24-48) Monocytes (%) (Auto) 10 % (0-9) Eosinophils (%) (Auto) 5 % (0-3) Basophils (%) (Auto) 1 % (0-3) Neutrophils # (Auto) 7.1 x10^3/uL (1.8-7.7) Lymphocytes # (Auto) 1.5 x10^3/uL (1.0-4.8) Monocytes # (Auto) 1.0 x10^3/uL (0.0-1.1) Eosinophils # (Auto) 0.5 x10^3/uL (0.0-0.7) Basophils # (Auto) 0.1 x10^3/uL (0.0-0.2) Sodium Level 141 mmol/L (136-145) Potassium Level 3.7 mmol/L (3.5-5.1) Chloride Level 103 mmol/L (98-107) Carbon Dioxide Level 27 mmol/L (21-32) Anion Gap 11 (6-14) Blood Urea Nitrogen 7 mg/dL (8-26) Creatinine 1.0 mg/dL (0.7-1.3) Estimated GFR (Cockcroft-Gault) 79.4 BUN/Creatinine Ratio 7 (6-20) Glucose Level 94 mg/dL (70-99) Calcium Level 8.5 mg/dL (8.5-10.1) Total Bilirubin 0.2 mg/dL (0.2-1.0) Aspartate Amino Transf (AST/SGOT) 16 U/L (15-37) Alanine Aminotransferase (ALT/SGPT) 11 U/L (16-63) Alkaline Phosphatase 75 U/L (46-116) Total Protein 6.7 g/dL (6.4-8.2) Albumin 2.8 g/dL (3.4-5.0) Albumin/Globulin Ratio 0.7 (1.0-1.7) Micro Microbiology 03/26/19 Blood Culture - Preliminary, Resulted NO GROWTH AFTER 1 DAY Objective Assessment Sepsis - POA 03/26 LLE cellulitis ? PAD Fever - better Leukocytosis - better Meth use - smoke states last use 3 weeks ago + UDS Plan Plan of Care Cont Vanc/Zosyn F/u cults and labs Elevation Await Vascular eval ROBER MADRID MD Mar 29, 2019 08:36
[2019-03-29] MEDS: LACTOBACILLUS RHAMNOSUS GG 1 CAPSULE. PO SCH ×2 (08:52→21:05)
[2019-03-29] MEDS: HYDROcodone/APAP 5/325MG 1 TAB TABLET PO PRN ×2 (10:11→19:27)
[2019-03-29 10:59] VITALS: BP 155/81
[2019-03-29] MEDS: ENOXAPARIN 40 MG/0.4 ML SYRINGE. SQ SCH (13:19)
[2019-03-29] MEDS: VANCOMYCIN PER PHARMACY MC PRN ×2 (14:37→19:31)
[2019-03-29 15:00] VITALS: BP 102/52
--- NOTE | 2019-03-29 15:42 | PDOC2 ---
CONSULT Date of Consult Date of Consult DATE: 03/29/19 TIME: 12:30 Reason for Consult Reason for Consult: Cellulitis left lower extremity with peripheral vascular disease. Referring Physician Referring Physician: Dr. Brian Wiggins Identification/Chief Complaint Chief Complaint Fever and left lower leg redness, swelling and pain. Source Source: Chart review, Patient History of Present Illness Reason for Visit: The patient is a 48-year-old male with a history of previous cellulitis of his lower extremities in January and was hospitalized for this on IV antibiotics and discharged on oral antibiotic therapy for 7 days. The patient states the redness never fully resolved. He noticed pain and redness to the left groin approximately 1 week ago. While at work this past Tuesday, he began to feel poorly describing symptoms like the flu with increasing pain, swelling and redness to left lower extremity. He began to run a fever with nausea for several days and when this did not improve, the patient presented to the emergency room for further evaluation. The patient has a history of meth use but denies injections, reporting last use 3 weeks ago. He reports a history of left groin lymph node resection in the past for reasons he is unsure of. The patient also reports a history of sustaining a blunt traumatic injury from a sledge hammer to the left lower extremity 20 years ago. He states that the skin remained intact and without disruption, nor was there a suspicion of a foreign body fragment with this injury. However, describes that the area of injury atrophied for quite some time. The injury is in the exact location as the current area of concern for cellulitis. He denies symptoms consistent with claudication, non-healing wounds to the left lower extremity or muscle cramping. Unfortunately, he continues to smoke but has purposely decreased to about 5-6 cigarettes a day. LLE venous ultrasound was negative for DVT. An arterial dop pler was performed. Vascular Surgery has been consulted in the setting of an abnormal arterial duplex result with cellulitis to the left lower extremity. Past Medical History Past Medical History 1. Cellulitis bilateral lower extremities 1 month ago. 2. Blunt trauma to left lower extremity with sledge hammer impact 20 years ago. 3. Tobacco abuse. 4. Meth use. 5. GERD. 6. Swollen lymph nodes left groin with history of resection. Past Surgical History Past Surgical History 1. Lymph node resection, left groin. Family History Family History: Hypertension Social History <1 pack per day ALCOHOL: occassional Drugs: Crystal meth Lives: Alone Current Problem List Problem List Problems Medical Problems: (1) Leukocytosis Status: Acute Current Medications Current Medications Current Medications Sodium Chloride 1,000 ml @ 2,400 mls/hr Q25M IV Last administered on 03/26/19at 22:43; Start 03/26/19 at 20:30; Stop 03/26/19 at 21:29; Status DC Piperacillin Sod/ Tazobactam Sod 4.5 gm/Sodium Chloride 100 ml @ 200 mls/hr 1X ONCE IV Last administered on 03/26/19at 20:30; Start 03/26/19 at 20:30; Stop 03/26/19 at 20:59; Status DC Vancomycin HCl (Vanco Per Pharmacy) 1 each 1X ONCE MC ; Start 03/26/19 at 20:30; Stop 03/26/19 at 20:31; Status DC Acetaminophen (Tylenol) 1,000 mg 1X ONCE PO Last administered on 03/26/19at 20:31; Start 03/26/19 at 20:30; Stop 03/26/19 at 20:31; Status DC Vancomycin HCl 2 gm/Sodium Chloride 500 ml @ 250 mls/hr 1X ONCE IV Last administered on 03/26/19at 20:31; Start 03/26/19 at 20:30; Stop 03/26/19 at 22:29; Status DC Clindamycin Phosphate 50 ml @ 100 mls/hr Q8HRS IV Last administered on 03/28/19at 05:19; Start 03/26/19 at 22:00; Stop 03/28/19 at 10:45; Status DC Lactobacillus Rhamnosus (Culturelle) 1 cap BID PO Last administered on 03/28/19at 23:01; Start 03/27/19 at 09:00 Ondansetron HCl (Zofran) 4 mg PRN Q8HRS PRN IV NAUSEA/VOMITING; Start 03/26/19 at 21:30; Stop 03/27/19 at 21:29; Status DC Morphine Sulfate (Morphine Sulfate) 4 mg PRN Q2HR PRN IV PAIN Last administered on 03/27/19at 16:58; Start 03/26/19 at 21:30; Stop 03/27/19 at 19:28; Status DC Acetaminophen (Tylenol) 650 mg PRN Q4HRS PRN PO FEVER Last administered on 03/27/19at 03:46; Start 03/26/19 at 21:30; Stop 03/27/19 at 21:29; Status DC Sodium Chloride 1,000 ml @ 125 mls/hr 1X ONCE IV ; Start 03/26/19 at 21:30; Stop 03/27/19 at 05:29; Status DC Influenza Virus Vaccine Quadrival (Afluria Quad 2019-20 (3yr Up) Syringe) 0.5 ml ONCE ONCE VAX IM ; Start 03/27/19 at 09:00; Stop 03/27/19 at 09:01; Status DC Info (FLU VACCINE SCREEN per RX) 1 each PRN 1X PRN MC SEE COMMENTS; Start 03/26/19 at 23:45; Status Cancel Piperacillin Sod/ Tazobactam Sod 4.5 gm/Sodium Chloride 100 ml @ 200 mls/hr Q6HRS IV Last administered on 03/29/19at 13:20; Start 03/27/19 at 12:00 Vancomycin HCl (Vanco Per Pharmacy) 1 each PRN DAILY PRN MC SEE COMMENTS Last administered on 03/28/19at 10:05; Start 03/27/19 at 08:30 Vancomycin HCl 2 gm/Sodium Chloride 500 ml @ 250 mls/hr Q12H IV Last administered on 03/27/19at 21:03; Start 03/27/19 at 09:00; Stop 03/28/19 at 09:37; Status DC Vancomycin HCl (Vancomycin Trough Level) 1 each 1X ONCE MC Last administered on 03/28/19at 08:30; Start 03/28/19 at 08:30; Stop 03/28/19 at 08:31; Status DC Ondansetron HCl (Zofran) 4 mg STK-MED ONCE .ROUTE ; Start 03/27/19 at 12:03; Stop 03/27/19 at 12:04; Status DC Sevoflurane (Ultane) 15 ml STK-MED ONCE IH ; Start 03/27/19 at 12:03; Stop 03/27/19 at 12:04; Status DC Propofol 0 ml @ As Directed STK-MED ONCE IV ; Start 03/27/19 at 12:04; Stop 03/27/19 at 12:04; Status DC Lidocaine HCl (Lidocaine Pf 2% Vial) 5 ml STK-MED ONCE .ROUTE ; Start 03/27/19 at 12:04; Stop 03/27/19 at 12:04; Status DC Enoxaparin Sodium (Lovenox 40mg Syringe) 40 mg Q24H SQ Last administered on 03/29/19at 13:19; Start 03/27/19 at 13:00 Acetaminophen/ Hydrocodone Bitart (Lortab 5/325) 1 tab PRN Q4HRS PRN PO PAIN Last administered on 03/29/19at 10:11; Start 03/27/19 at 19:30 Fentanyl Citrate (Fentanyl 2ml Vial) 50 mcg PRN Q2HR PRN IVP PAIN, 2nd CHOICE Last administered on 03/29/19at 05:09; Start 03/27/19 at 19:30 Morphine Sulfate (Morphine Sulfate) 2 mg PRN Q2HR PRN IV PAIN, 1st CHOICE; Start 03/27/19 at 19:30 Vancomycin HCl 1.75 gm/Sodium Chloride 500 ml @ 250 mls/hr Q12H IV ; Start 03/28/19 at 10:00; Status Cancel Vancomycin HCl (Vancomycin Trough Level) 1 each 1X ONCE MC ; Start 03/29/19 at 09:30; Stop 03/29/19 at 09:31; Status DC Vancomycin HCl 1.75 gm/Sodium Chloride 500 ml @ 250 mls/hr Q8H IV Last a dministered on 03/29/19at 09:31; Start 03/28/19 at 10:00 Vancomycin HCl (Vancomycin Random Level) 1 each 1X ONCE MC ; Start 03/29/19 at 17:30; Stop 03/29/19 at 17:31 Active Scripts Active Allergies Allergies: Coded Allergies: Iodinated Contrast Media (Verified Allergy, Severe, "throat swells closed", 02/16/19) ROS General: YES: Fatigue PSYCHOLOGICAL ROS: No: Anxiety, Depression HEENT: YES: Heacaches; No: Oral lesions, Sore Throat Hematological and Lymphatic: YES: Swollen Lymph Nodes (Right groin); No: Bleeding Problems, Blood Clots, Brusing, Night Sweats Respiratory: No: Cough, Hemoptysis, Pleuritic Pain, Shortness of breath, SOB with excertion Cardiovascular: yes Edema (Left lower extremity); No Chest Pain, No Palpitations Gastrointestinal: Yes Nausea; No Vomiting, No Abdominal Pain, No Diarrhea, No Constipation Genitourinary: YES ; No Dysuria, No Incontinence, No Hematuria Musculoskeletal: Yes Pain In: (Left lower extremity), Yes Swelling In: (Left lower extremity); No Joint Pain, No Joint Swelling Neurological: Yes Headaches; No Confusion, No Dizziness, No Numbness/Tingling Skin: Yes Rash (Intermittent bilateral scattered rash to lower extremities ); No Mottling Physical Exam General: Alert, Oriented X3, Cooperative, No acute distress HEENT: Atraumatic Lungs: Clear to auscultation, Normal air movement Heart: Regular rate, Normal S1, Normal S2, No murmurs Abdomen: Normal bowel sounds, Soft, No tenderness Extremities: No clubbing, Normal pulses (Strong and palpable, bilateral brachial, radial, femoral and dorsalis pedal pulses. Palpable right post tibial pulse. Strong doppler signal obtained from left post tibial artery. Unable to palpate due to swelling.) Skin: No breakdown, Other (Erythema and warmth to touch mid-fuchs to left leg. Reddened area noted just below left groin. Scattered rash noted to bilateral thighs.) Neuro: Normal tone, Sensation intact MUSCULOSKELETAL: No joint tenderness, No deformity Vitals VITALS Vital Signs Date Time Temp Pulse Resp B/P (MAP) Pulse Ox O2 Delivery O2 Flow Rate FiO2 03/29/19 11:11 Room Air 03/29/19 10:59 98.1 90 18 155/81 (105) 97 98.1 Labs Labs Laboratory Tests Test 03/28/19 08:30 03/28/19 21:30 03/29/19 03:40 White Blood Count 11.7 x10^3/uL (4.0-11.0) 10.2 x10^3/uL (4.0-11.0) Red Blood Count 4.41 x10^6/uL (4.30-5.70) 4.51 x10^6/uL (4.30-5.70) Hemoglobin 13.0 g/dL (13.0-17.5) 13.5 g/dL (13.0-17.5) Hematocrit 39.9 % (39.0-53.0) 40.4 % (39.0-53.0) Mean Corpuscular Volume 91 fL (79-100) 90 fL (79-100) Mean Corpuscular Hemoglobin 30 pg (25-35) 30 pg (25-35) Mean Corpuscular Hemoglobin Concent 33 g/dL (31-37) 34 g/dL (31-37) Red Cell Distribution Width 14.8 % (11.5-14.5) 14.5 % (11.5-14.5) Platelet Count 227 x10^3/uL (140-400) 265 x10^3/uL (140-400) Neutrophils (%) (Auto) 79 % (31-73) 69 % (31-73) Lymphocytes (%) (Auto) 8 % (24-48) 15 % (24-48) Monocytes (%) (Auto) 10 % (0-9) 10 % (0-9) Eosinophils (%) (Auto) 3 % (0-3) 5 % (0-3) Basophils (%) (Auto) 0 % (0-3) 1 % (0-3) Neutrophils # (Auto) 9.3 x10^3/uL (1.8-7.7) 7.1 x10^3/uL (1.8-7.7) Lymphocytes # (Auto) 0.9 x10^3/uL (1.0-4.8) 1.5 x10^3/uL (1.0-4.8) Monocytes # (Auto) 1.1 x10^3/uL (0.0-1.1) 1.0 x10^3/uL (0.0-1.1) Eosinophils # (Auto) 0.4 x10^3/uL (0.0-0.7) 0.5 x10^3/uL (0.0-0.7) Basophils # (Auto) 0.0 x10^3/uL (0.0-0.2) 0.1 x10^3/uL (0.0-0.2) Sodium Level 141 mmol/L (136-145) 141 mmol/L (136-145) Potassium Level 4.3 mmol/L (3.5-5.1) 3.7 mmol/L (3.5-5.1) Chloride Level 105 mmol/L (98-107) 103 mmol/L (98-107) Carbon Dioxide Level 30 mmol/L (21-32) 27 mmol/L (21-32) Anion Gap 6 (6-14) 11 (6-14) Blood Urea Nitrogen 8 mg/dL (8-26) 7 mg/dL (8-26) Creatinine 0.9 mg/dL (0.7-1.3) 1.0 mg/dL (0.7-1.3) Estimated GFR (Cockcroft-Gault) 89.7 79.4 Glucose Level 87 mg/dL (70-99) 94 mg/dL (70-99) Calcium Level 8.2 mg/dL (8.5-10.1) 8.5 mg/dL (8.5-10.1) Vancomycin Level Trough 11.1 mcg/mL (10.0-20.0) Vancomycin Last Dose Date Unknown Vancomycin Last Dose Time Unknown Urine Opiates Screen Neg (NEG) Urine Methadone Screen Neg (NEG) Urine Barbiturates Neg (NEG) Urine Phencyclidine Screen Neg (NEG) Urine Amphetamine/Methamphetamine Pos (NEG) Urine Benzodiazepines Screen Neg (NEG) Urine Cocaine Screen Neg (NEG) Urine Cannabinoids Screen Neg (NEG) Urine Ethyl Alcohol Neg (NEG) BUN/Creatinine Ratio 7 (6-20) Total Bilirubin 0.2 mg/dL (0.2-1.0) Aspartate Amino Transf (AST/SGOT) 16 U/L (15-37) Alanine Aminotransferase (ALT/SGPT) 11 U/L (16-63) Alkaline Phosphatase 75 U/L (46-116) Total Protein 6.7 g/dL (6.4-8.2) Albumin 2.8 g/dL (3.4-5.0) Albumin/Globulin Ratio 0.7 (1.0-1.7) Laboratory Tests Test 03/28/19 21:30 03/29/19 03:40 Urine Opiates Screen Neg (NEG) Urine Methadone Screen Neg (NEG) Urine Barbiturates Neg (NEG) Urine Phencyclidine Screen Neg (NEG) Urine Amphetamine/Methamphetamine Pos (NEG) Urine Benzodiazepines Screen Neg (NEG) Urine Cocaine Screen Neg (NEG) Urine Cannabinoids Screen Neg (NEG) Urine Ethyl Alcohol Neg (NEG) White Blood Count 10.2 x10^3/uL (4.0-11.0) Red Blood Count 4.51 x10^6/uL (4.30-5.70) Hemoglobin 13.5 g/dL (13.0-17.5) Hematocrit 40.4 % (39.0-53.0) Mean Corpuscular Volume 90 fL (79-100) Mean Corpuscular Hemoglobin 30 pg (25-35) Mean Corpuscular Hemoglobin Concent 34 g/dL (31-37) Red Cell Distribution Width 14.5 % (11.5-14.5) Platelet Count 265 x10^3/uL (140-400) Neutrophils (%) (Auto) 69 % (31-73) Lymphocytes (%) (Auto) 15 % (24-48) Monocytes (%) (Auto) 10 % (0-9) Eosinophils (%) (Auto) 5 % (0-3) Basophils (%) (Auto) 1 % (0-3) Neutrophils # (Auto) 7.1 x10^3/uL (1.8-7.7) Lymphocytes # (Auto) 1.5 x10^3/uL (1.0-4.8) Monocytes # (Auto) 1.0 x10^3/uL (0.0-1.1) Eosinophils # (Auto) 0.5 x10^3/uL (0.0-0.7) Basophils # (Auto) 0.1 x10^3/uL (0.0-0.2) Sodium Level 141 mmol/L (136-145) Potassium Level 3.7 mmol/L (3.5-5.1) Chloride Level 103 mmol/L (98-107) Carbon Dioxide Level 27 mmol/L (21-32) Anion Gap 11 (6-14) Blood Urea Nitrogen 7 mg/dL (8-26) Creatinine 1.0 mg/dL (0.7-1.3) Estimated GFR (Cockcroft-Gault) 79.4 BUN/Creatinine Ratio 7 (6-20) Glucose Level 94 mg/dL (70-99) Calcium Level 8.5 mg/dL (8.5-10.1) Total Bilirubin 0.2 mg/dL (0.2-1.0) Aspartate Amino Transf (AST/SGOT) 16 U/L (15-37) Alanine Aminotransferase (ALT/SGPT) 11 U/L (16-63) Alkaline Phosphatase 75 U/L (46-116) Total Protein 6.7 g/dL (6.4-8.2) Albumin 2.8 g/dL (3.4-5.0) Albumin/Globulin Ratio 0.7 (1.0-1.7) Images Images DUPLEX SONOGRAPHY OF THE PERIPHERAL ARTERIAL SYSTEM OF BOTH LOWER EXTREMITIES Clinical indications: Peripheral vascular disease. Findings: Duplex sonography of the peripheral arterial system of both lower extremities including nava scale and color flow and spectral waveform analysis was performed.Triphasic waveforms are seen throughout the right leg. Triphasic and biphasic waveforms are seen throughout the left leg. The left peroneal artery is not visualized and therefore may be occluded. No significant plaque formation or stenosis is identified is seen elsewhere. Right leg: common femoral artery- 138 cm/sec, profunda femoral artery - 50cm/sec, proximal superficial femoral artery -122 cm/sec, mid superficial femoral artery -121 cm/sec, distal superficial femoral artery- 113 cm/sec,popliteal artery -63 cm/sec, proximal posterior tibial artery- 82 cm/sec, distal posterior tibial artery- 65 cm/sec, peroneal artery- 69 cm/sec, anterior tibial artery- 70 cm/sec, dorsalis pedis artery -71 cm/sec. Left leg: common femoral artery- 115 cm/sec, profunda femoral artery -45 cm/sec, proximal superficial femoral artery- 125cm/sec, mid superficial femoral artery- 114 cm/sec, distal superficial femoral artery- 103 cm/sec,popliteal artery -102 cm/sec, proximal posterior tibial artery -74 cm/sec, distal posterior tibial artery- 80 cm/sec, peroneal artery -0 cm/sec, anterior tibial artery -79 cm/sec, dorsalis pedis artery- 96 cm/sec. Ultrasound venous Doppler INDICATION:Left leg redness, swelling and fever. FINDINGS: The interrogated deep veins are compressible and demonstrate evidence of blood flow with normal respiratory variation and response to augmentation. Enlarged left groin lymph node measuring 4.0 x 1.5 x 1.5 centimeter. IMPRESSION: 1. No sonographic evidence of acute DVT of the bilateral lower extremity deep veins. 2. Enlarged left groin lymph node, nonspecific likely reactive. Impression: Left peroneal artery is not visualized and therefore may be occluded. No occlusive disease or significant stenosis is seen elsewhere. Left groin lymph nodes are seen. Largest measures 3.4 cm in size. Recommend clinical follow-up with regard to any enlarging left groin lymph nodes. Surgical clips were seen here on a recent CT study dated February 16, 2019. Assessment/Plan Assessment/Plan The patient is a 48-year-old male with a history of previous cellulitis of his lower extremities in January and was hospitalized for this on IV antibiotics and discharged on oral antibiotic therapy for 7 days. Over the past several days, he began to feel poorly describing symptoms like the flu with increasing pain, swelling and redness to left lower extremity. LLE venous ultrasound was negative for DVT. An arterial doppler was performed. Vascular Surgery has been consulted in the setting of an abnormal arterial duplex result with cellulitis to the left lower extremity. 1. Peripheral arterial disease. The patient has a strong, palpable pulse to the left femoral artery and dorsalis pedal artery. I am able to quickly find triphasic doppler signal to the left posterior tibial artery and suspect I would be able to palpate this as well once the swelling is resolved. The arterial ultrasound to the left lower extremity indicates an abnormality with lack of visualization of the peroneal artery but otherwise, is normal. The patient reports a traumatic blunt injury to the left leg 20 years ago from the impact of a sledge hammer. I would suspect this is most likely the cause of thrombosis to the peroneal artery and why it is not visualized. Despite this, the patient has a normal vascular exam to the LLE. I have reviewed and discusses the patient's current status, examination findings and interpretation of the vascular studies with Dr. Ruddy Munoz. No further vascular evaluation is recommended at this time. May consider x-ray or MRI of the left leg to ensure no orthopedic causes or foreign body fragments left in this area of concern from previous injury as stated above. 2. Tobacco abuse. I have educated the patient on the effects of tobacco in regards to vascular health. The patient is interested in completely ceasing his smoking habit and states he has been successful at reducing consumption significantly. He denies interest in other measures to help him to completely quit smoking. 3. Cellulitis left lower leg. Infectious Disease has already initiated IV antibiotic therapy with improvement in appearance since admission. Blood cultures remain negative after 2 day. Thank you for the opportunity to participate in the care of this patient. No additional vascular intervention is recommended. The patient's questions have been answered to his satisfaction. Please feel free to contact us in the future as needed. FABIO NIETO APRN Mar 29, 2019 15:42
[2019-03-29] MEDS ORDERED: VANCOMYCIN RANDOM LEVEL. MC ONE (17:30)
--- NOTE | 2019-03-29 18:34 | RAD ---
TIBIA FIBULA LEFT History: Possible foreign body. Technique: 2 views left tibia and fibula. Comparison: None. Findings: Normal alignment. No fracture. Mild anterior ankle DJD. Mild patellar spurring. Multiple rounded densities projecting over the anterior aspect of the lower leg and additional rounded density projecting over the posterior aspect. Lower leg soft tissue edema. Impression: 1. Multiple rounded densities projecting over the anterior and posterior aspect of the distal leg, may represent dystrophic calcifications. Given concern for foreign body recommend clinical correlation. 2. No acute osseous abnormality. 3. Lower leg soft tissue edema. Electronically signed by: Jewel Mccarthy DO (03/29/2019 6:31 PM) [id number]
--- NOTE | 2019-03-29 19:34 | NUR ---
Pharmacy Vancomycin Dosing Note S:Consulted to monitor and dose vancomycin started 03/26/19. O:DEMI BROWN is a 48 year old M with concerns for sepsis secondary to cellulitis. Height: 6 feet, 1 inches Weight: 118.257894 kg [place] Body Weight: 79.90 Adjusted Body Weight: 95.14 Dosing Weight: Actual Other Antibiotics: ZOSYN LABS: Last BUN: 7 Last Creatinine: 1 Creatinine Clearance: >120 mL/min Last WBC: 10.2 Last Procalcitonin: 0.68 Tmax (past 24 hours): 99.3 Microbiology: 03/29: BCX 03/26 NG I/O: 1710/8 VOIDS Drug Levels: Last Random level: 14.7 on 03/29/19 at 1740 Last dose given 03/28/19 at 2100 Vancomycin Dosing: Loading Dose: 2000 mg x1 Dosing Weight: Actual Target Trough: 15-20 A: Based on: Patient received a dose of vancomyin 03/29 @ 06:05 and a partial dose at 09:30. Random level ordered for 8 hours post 09:30 partial dose to confirm no vancomycin accumulation. Based on this level of 14.7 P: 1. Will continue Vancomycin 1750 mg IV q8h 2. Follow up Trough level on 03/29/19 at 1130, Serum Creatinine ordered for 03/29/19 AM 3. Pharmacy will continue to monitor, follow and adjust therapy as needed. DILLAN HUSSEIN [facility], 03/29/19 [id number]
[2019-03-29 19:45] VITALS: BP 148/84
[2019-03-29 23:15] VITALS: BP 112/53
[2019-03-30] MEDS: PIPERACILLIN/TAZOBACTAM 4.5 GM in IV NORMAL SALINE 100ML 100 ML IV SCH ×2 (00:12→06:00)
[2019-03-30 03:20] VITALS: BP 128/85
[2019-03-30] MEDS: VANCOMYCIN 1.75 GM in IV NORMAL SALINE 500ML BAG 500 ML IV SCH (05:18)
--- NOTE | 2019-03-30 05:59 | NUR ---
Zosyn scheduled for MN did not infuse - clamped and unable to undo administration on eMAR- will give MN at 06.
[2019-03-30] MEDS: HYDROcodone/APAP 5/325MG 1 TAB TABLET PO PRN (07:15)
[2019-03-30 07:30] VITALS: BP 119/59
--- NOTE | 2019-03-30 07:46 | PDOC ---
Infectious Disease Note Subjective Subjective Better - No aches. Leg with less swelling/pain Eating well No F/C/s/N/V/d/SOA/rash/dysuria ROS ROS o/w neg Vital Sign Vital Signs Vital Signs Date Time Temp Pulse Resp B/P (MAP) Pulse Ox O2 Delivery O2 Flow Rate FiO2 03/30/19 07:30 98.3 75 18 119/59 (79) 94 Room Air 98.3 Physical Exam PHYSICAL EXAM CONSTITUTIONAL: He is cooperative. He is in no acute distress, looks comfortable. He is lying in bed. HEENT: Pupils equal and reactive. He has normal conjunctivae. Oral cavity, pharynx has questionable dentition. NECK: Supple. Good range of motion. LUNGS: Clear to auscultation bilaterally. HEART: S1, S2, without murmur. ABDOMEN: Obese, soft, nontender, no guarding or rebound. EXTREMITIES: Without clubbing, cyanosis. Left lower extremity has less erythema about the tibial area that is warm. mild tracking up through the medial aspect of the leg - resolved, discomfort in his left groin area - lamine r. SKIN: Warm to touch without generalized signs of rash. Does have some scratches that are healing on his left lower extremity and his right lower extremity as well. NEUROLOGIC: He is nonfocal. PSYCHIATRIC: Affect is appropriate. Labs Lab Laboratory Tests Test 03/29/19 17:40 Random Vancomycin Level 14.7 mcg/mL Micro Microbiology 03/26/19 Blood Culture - Preliminary, Resulted NO GROWTH AFTER 1 DAY Objective Assessment Sepsis - POA 03/26 LLE cellulitis ? PAD Fever - better Leukocytosis - better Meth use - smoke states last use 3 weeks ago + UDS Plan Plan of Care Discont Vanc/Zosyn change to Zyvox/keflex for 7 days Elevation Ok to d/c home from ID standpoint Can f/u ID offfice 1 to 2 weeks ROBER MADRID MD Mar 30, 2019 07:46
--- NOTE | 2019-03-30 08:05 | PDOC ---
PROGRESS NOTES History of Present Illness History of Present Illness VTE Prophylaxis Ordered VTE Prophylaxis Devices: No VTE Pharmacological Prophylaxi: Yes Assessment/Plan Assessment/Plan IMPRESSION ACUTE ON RECURRENT CELLULITIS OF LEGS SEPSIS History of methamphetamine abuse. MORBID OBESITY No sonographic evidence of acute DVT of the bilateral lower extremity deep veins. 03/26 US Enlarged left groin lymph node, nonspecific likely reactive. Left peroneal artery is not visualized and therefore may be occluded. No occlusive disease or significant stenosis is seen elsewhere. Left groin lymph nodes measures 3.4 cm in size. Recommend clinical follow-up with regard to any enlarging left groin lymph nodes. Small irregular 2 cm hyperdense lesion at the inferior right lobe of liver. This could represent a hemangioma but // nonspecific. Outpatient MR could be of benefit admit Zyvox/keflex for 7 days PO labs and cultures, elevation. DVT PROPHYLAXIS drug cessation needed POOR PROGNOSIS FOR HEALING DUE TO ILLICIT DRUG USE 28 MIN PT EXAM D/C PLANNING , CHART REVIEW, > 50% OF TIME SPENT WITH EXAM, CHART REVIEW, PT CARE COORDINATION Vitals Vitals Vital Signs Date Time Temp Pulse Resp B/P (MAP) Pulse Ox O2 Delivery O2 Flow Rate FiO2 03/30/19 07:30 98.3 75 18 119/59 (79) 94 Room Air 98.3 Physical Exam Physical Exam CONSTITUTIONAL: He is cooperative. He is in no acute distress, looks comfortable. He is lying in bed. HEENT: Pupils equal and reactive. He has normal conjunctivae. Oral cavity, pharynx has questionable dentition. NECK: Supple. Good range of motion. LUNGS: Clear to auscultation bilaterally. HEART: S1, S2, without murmur. ABDOMEN: Obese, soft, nontender, no guarding or rebound. EXTREMITIES: Without clubbing, cyanosis. Left lower extremity has less erythema about the tibial area that is warm. Does have some mild tracking up through the medial aspect of the leg, has some discomfort in his left groin area - better. Right thigh has some mild irritation and some erythema. SKIN: Warm to touch without generalized signs of rash. Does have some scratches that are healing on his left lower extremity and his right lower extremity as well. NEUROLOGIC: He is nonfocal. PSYCHIATRIC: Affect is appropriate. General: Alert, Oriented X3, Cooperative, No acute distress Heart: Regular rate, Normal S1, Normal S2, No murmurs Lungs: Clear Abdomen: Normal bowel sounds, Soft, No tenderness Extremities: No clubbing, Normal pulses (Strong and palpable, bilateral brachial, radial, femoral and dorsalis pedal pulses. Palpable right post tibial pulse. Strong doppler signal obtained from left post tibial artery. Unable to palpate due to swelling.) Skin: No breakdown, Other (LESS Erythema and warmth to touch mid-fuchs to left leg. Reddened area noted just below left groin. Scattered rash noted to bilateral thighs.) Labs LABS Laboratory Tests Test 03/29/19 17:40 Random Vancomycin Level 14.7 mcg/mL Assessment and Plan Assessmemt and Plan Problems Medical Problems: (1) Leukocytosis Status: Acute Comment Review of Relevant I have reviewed the following items fabian (where applicable) has been applied. Labs Laboratory Tests Test 03/28/19 08:30 03/28/19 21:30 03/29/19 03:40 03/29/19 17:40 White Blood Count 11.7 x10^3/uL (4.0-11.0) 10.2 x10^3/uL (4.0-11.0) Red Blood Count 4.41 x10^6/uL (4.30-5.70) 4.51 x10^6/uL (4.30-5.70) Hemoglobin 13.0 g/dL (13.0-17.5) 13.5 g/dL (13.0-17.5) Hematocrit 39.9 % (39.0-53.0) 40.4 % (39.0-53.0) Mean Corpuscular Volume 91 fL (79-100) 90 fL (79-100) Mean Corpuscular Hemoglobin 30 pg (25-35) 30 pg (25-35) Mean Corpuscular Hemoglobin Concent 33 g/dL (31-37) 34 g/dL (31-37) Red Cell Distribution Width 14.8 % (11.5-14.5) 14.5 % (11.5-14.5) Platelet Count 227 x10^3/uL (140-400) 265 x10^3/uL (140-400) Neutrophils (%) (Auto) 79 % (31-73) 69 % (31-73) Lymphocytes (%) (Auto) 8 % (24-48) 15 % (24-48) Monocytes (%) (Auto) 10 % (0-9) 10 % (0-9) Eosinophils (%) (Auto) 3 % (0-3) 5 % (0-3) Basophils (%) (Auto) 0 % (0-3) 1 % (0-3) Neutrophils # (Auto) 9.3 x10^3/uL (1.8-7.7) 7.1 x10^3/uL (1.8-7.7) Lymphocytes # (Auto) 0.9 x10^3/uL (1.0-4.8) 1.5 x10^3/uL (1.0-4.8) Monocytes # (Auto) 1.1 x10^3/uL (0.0-1.1) 1.0 x10^3/uL (0.0-1.1) Eosinophils # (Auto) 0.4 x10^3/uL (0.0-0.7) 0.5 x10^3/uL (0.0-0.7) Basophils # (Auto) 0.0 x10^3/uL (0.0-0.2) 0.1 x10^3/uL (0.0-0.2) Sodium Level 141 mmol/L (136-145) 141 mmol/L (136-145) Potassium Level 4.3 mmol/L (3.5-5.1) 3.7 mmol/L (3.5-5.1) Chloride Level 105 mmol/L (98-107) 103 mmol/L (98-107) Carbon Dioxide Level 30 mmol/L (21-32) 27 mmol/L (21-32) Anion Gap 6 (6-14) 11 (6-14) Blood Urea Nitrogen 8 mg/dL (8-26) 7 mg/dL (8-26) Creatinine 0.9 mg/dL (0.7-1.3) 1.0 mg/dL (0.7-1.3) Estimated GFR (Cockcroft-Gault) 89.7 79.4 Glucose Level 87 mg/dL (70-99) 94 mg/dL (70-99) Calcium Level 8.2 mg/dL (8.5-10.1) 8.5 mg/dL (8.5-10.1) Vancomycin Level Trough 11.1 mcg/mL (10.0-20.0) Vancomycin Last Dose Date Unknown Vancomycin Last Dose Time Unknown Urine Opiates Screen Neg (NEG) Urine Methadone Screen Neg (NEG) Urine Barbiturates Neg (NEG) Urine Phencyclidine Screen Neg (NEG) Urine Amphetamine/Methamphetamine Pos (NEG) Urine Benzodiazepines Screen Neg (NEG) Urine Cocaine Screen Neg (NEG) Urine Cannabinoids Screen Neg (NEG) Urine Ethyl Alcohol Neg (NEG) BUN/Creatinine Ratio 7 (6-20) Total Bilirubin 0.2 mg/dL (0.2-1.0) Aspartate Amino Transf (AST/SGOT) 16 U/L (15-37) Alanine Aminotransferase (ALT/SGPT) 11 U/L (16-63) Alkaline Phosphatase 75 U/L (46-116) Total Protein 6.7 g/dL (6.4-8.2) Albumin 2.8 g/dL (3.4-5.0) Albumin/Globulin Ratio 0.7 (1.0-1.7) Random Vancomycin Level 14.7 mcg/mL Laboratory Tests Test 03/29/19 17:40 Random Vancomycin Level 14.7 mcg/mL Microbiology 03/26/19 Blood Culture - Preliminary, Resulted NO GROWTH AFTER 3 DAYS Medications Current Medications Sodium Chloride 1,000 ml @ 2,400 mls/hr Q25M IV Last administered on 03/26/19at 22:43; Start 03/26/19 at 20:30; Stop 03/26/19 at 21:29; Status DC Piperacillin Sod/ Tazobactam Sod 4.5 gm/Sodium Chloride 100 ml @ 200 mls/hr 1X ONCE IV Last administered on 03/26/19at 20:30; Start 03/26/19 at 20:30; Stop 03/26/19 at 20:59; Status DC Vancomycin HCl (Vanco Per Pharmacy) 1 each 1X ONCE MC ; Start 03/26/19 at 20:30; Stop 03/26/19 at 20:31; Status DC Acetaminophen (Tylenol) 1,000 mg 1X ONCE PO Last administered on 03/26/19at 20:31; Start 03/26/19 at 20:30; Stop 03/26/19 at 20:31; Status DC Vancomycin HCl 2 gm/Sodium Chloride 500 ml @ 250 mls/hr 1X ONCE IV Last administered on 03/26/19at 20:31; Start 03/26/19 at 20:30; Stop 03/26/19 at 22:29; Status DC Clindamycin Phosphate 50 ml @ 100 mls/hr Q8HRS IV Last administered on 03/28/19at 05:19; Start 03/26/19 at 22:00; Stop 03/28/19 at 10:45; Status DC Lactobacillus Rhamnosus (Culturelle) 1 cap BID PO Last administered on 03/29/19at 21:05; Start 03/27/19 at 09:00 Ondansetron HCl (Zofran) 4 mg PRN Q8HRS PRN IV NAUSEA/VOMITING; Start 03/26/19 at 21:30; Stop 03/27/19 at 21:29; Status DC Morphine Sulfate (Morphine Sulfate) 4 mg PRN Q2HR PRN IV PAIN Last administered on 03/27/19at 16:58; Start 03/26/19 at 21:30; Stop 03/27/19 at 19:28; Status DC Acetaminophen (Tylenol) 650 mg PRN Q4HRS PRN PO FEVER Last administered on 03/27/19at 03:46; Start 03/26/19 at 21:30; Stop 03/27/19 at 21:29; Status DC Sodium Chloride 1,000 ml @ 125 mls/hr 1X ONCE IV ; Start 03/26/19 at 21:30; Stop 03/27/19 at 05:29; Status DC Influenza Virus Vaccine Quadrival (Afluria Quad 2019-20 (3yr Up) Syringe) 0.5 ml ONCE ONCE VAX IM ; Start 03/27/19 at 09:00; Stop 03/27/19 at 09:01; Status DC Info (FLU VACCINE SCREEN per RX) 1 each PRN 1X PRN MC SEE COMMENTS; Start 03/26/19 at 23:45; Status Cancel Piperacillin Sod/ Tazobactam Sod 4.5 gm/Sodium Chloride 100 ml @ 200 mls/hr Q6HRS IV Last administered on 03/30/19at 00:12; Start 03/27/19 at 12:00 Vancomycin HCl (Vanco Per Pharmacy) 1 each PRN DAILY PRN MC SEE COMMENTS Last administered on 03/29/19at 19:31; Start 03/27/19 at 08:30 Vancomycin HCl 2 gm/Sodium Chloride 500 ml @ 250 mls/hr Q12H IV Last administered on 03/27/19at 21:03; Start 03/27/19 at 09:00; Stop 03/28/19 at 09:37; Status DC Vancomycin HCl (Vancomycin Trough Level) 1 each 1X ONCE MC Last administered on 03/28/19at 08:30; Start 03/28/19 at 08:30; Stop 03/28/19 at 08:31; Status DC Ondansetron HCl (Zofran) 4 mg STK-MED ONCE .ROUTE ; Start 03/27/19 at 12:03; Stop 03/27/19 at 12:04; Status DC Sevoflurane (Ultane) 15 ml STK-MED ONCE IH ; Start 03/27/19 at 12:03; Stop 03/27/19 at 12:04; Status DC Propofol 0 ml @ As Directed STK-MED ONCE IV ; Start 03/27/19 at 12:04; Stop 03/27/19 at 12:04; Status DC Lidocaine HCl (Lidocaine Pf 2% Vial) 5 ml STK-MED ONCE .ROUTE ; Start 03/27/19 at 12:04; Stop 03/27/19 at 12:04; Status DC Enoxaparin Sodium (Lovenox 40mg Syringe) 40 mg Q24H SQ Last administered on 03/29/19at 13:19; Start 03/27/19 at 13:00 Acetaminophen/ Hydrocodone Bitart (Lortab 5/325) 1 tab PRN Q4HRS PRN PO PAIN Last administered on 03/30/19at 07:15; Start 03/27/19 at 19:30 Fentanyl Citrate (Fentanyl 2ml Vial) 50 mcg PRN Q2HR PRN IVP PAIN, 2nd CHOICE Last administered on 03/29/19at 05:09; Start 03/27/19 at 19:30 Morphine Sulfate (Morphine Sulfate) 2 mg PRN Q2HR PRN IV PAIN, 1st CHOICE; Start 03/27/19 at 19:30 Vancomycin HCl 1.75 gm/Sodium Chloride 500 ml @ 250 mls/hr Q12H IV ; Start 03/28/19 at 10:00; Status Cancel Vancomycin HCl (Vancomycin Trough Level) 1 each 1X ONCE MC ; Start 03/29/19 at 09:30; Stop 03/29/19 at 09:31; Status DC Vancomycin HCl 1.75 gm/Sodium Chloride 500 ml @ 250 mls/hr Q8H IV Last administered on 03/29/19at 09:31; Start 03/28/19 at 10:00; Stop 03/29/19 at 17:35; Status DC Vancomycin HCl (Vancomycin Random Level) 1 each 1X ONCE MC Last administered on 03/29/19at 17:30; Start 03/29/19 at 17:30; Stop 03/29/19 at 17:31; Status DC Vancomycin HCl 1.75 gm/Sodium Chloride 500 ml @ 250 mls/hr Q8H IV Last administered on 03/30/19at 05:18; Start 03/29/19 at 20:00 Vancomycin HCl (Vancomycin Trough Level) 1 each 1X ONCE MC ; Start 03/30/19 at 11:30; Stop 03/30/19 at 11:31 Active Scripts Active Vitals/I & O Vital Sign - Last 24 Hours 03/29/19 03/29/19 03/29/19 03/29/19 10:11 10:59 11:11 15:00 Temp 98.1 98.7 98.1 98.7 Pulse 90 78 Resp 18 18 B/P (MAP) 155/81 (105) 102/52 (69) Pulse Ox 97 96 O2 Delivery Room Air Room Air Room Air Room Air 03/29/19 03/29/19 03/29/19 03/30/19 19:27 19:45 23:15 03:20 Temp 99.0 98.0 98.4 99.0 98.0 98.4 Pulse 83 75 75 Resp 20 18 18 B/P (MAP) 148/84 (105) 112/53 (72) 128/85 (99) Pulse Ox 100 96 96 O2 Delivery Room Air Room Air Room Air Room Air 03/30/19 03/30/19 07:15 07:30 Temp 98.3 98.3 Pulse 75 Resp 17 18 B/P (MAP) 119/59 (79) Pulse Ox 94 O2 Delivery Room Air Room Air Intake and Output 03/29/19 03/29/19 03/30/19 14:59 22:59 06:59 Intake Total 250 ml 800 ml 500 ml Balance 250 ml 800 ml 500 ml MARICARMEN LEIGH MD Mar 30, 2019 08:04
[2019-03-30] MEDS: CEPHALEXIN 250 MG CAPSULE. PO SCH ×2 (08:35→12:49)
[2019-03-30] MEDS: LACTOBACILLUS RHAMNOSUS GG 1 CAPSULE. PO SCH (08:36)
[2019-03-30] MEDS ORDERED: LINEZOLID 600 MG TABLET PO SCH (09:00)
[2019-03-30 09:56] LABS: GFR 79.4
[2019-03-30 11:19] VITALS: BP 145/77
--- NOTE | 2019-03-30 11:34 | NUR ---
SW phoned and faxed orders for Zyvox to [facility]. Medications will be delivered to pt's residence tomorrow. Discussed with RN and pt. Discussed with ID.
--- NOTE | 2019-03-30 12:27 | PDOC3 ---
Discharge Summary Date of Admission: Mar 26, 2019 Date of Discharge: Mar 30, 2019 Follow-Up: 3-5 days Admitting Diagnosis comment: DISCHARGE DX Assessment/Plan IMPRESSION ACUTE ON RECURRENT CELLULITIS OF LEGS SEPSIS History of methamphetamine abuse. MORBID OBESITY No sonographic evidence of acute DVT of the bilateral lower extremity deep veins. 03/26 US Enlarged left groin lymph node, nonspecific likely reactive. Left peroneal artery is not visualized and therefore may be occluded. No occlusive disease or significant stenosis is seen elsewhere. Left groin lymph nodes measures 3.4 cm in size. Recommend clinical follow-up with regard to any enlarging left groin lymph nodes. Small irregular 2 cm hyperdense lesion at the inferior right lobe of liver. This could represent a hemangioma but // nonspecific. Outpatient MR could be of benefit admit Zyvox/keflex for 7 days PO labs and cultures, elevation. DVT PROPHYLAXIS drug cessation needed POOR PROGNOSIS FOR HEALING DUE TO ILLICIT DRUG USE 28 MIN PT EXAM D/C PLANNING , CHART REVIEW, > 50% OF TIME SPENT WITH EXAM, CHART REVIEW, PT CARE COORDINATION Vitals Vitals Vital Signs Date Time Temp Pulse Resp B/P (MAP) Pulse Ox O2 Delivery O2 Flow Rate FiO2 03/30/19 07:30 98.3 75 18 119/59 (79) 94 Room Air 98.3 Physical Exam Physical Exam CONSTITUTIONAL: He is cooperative. He is in no acute distress, comfortable. He is lying in bed. HEENT: Pupils equal and reactive. He has normal conjunctivae. Oral cavity, pharynx has questionable dentition. NECK: Supple. Good range of motion. LUNGS: Clear to auscultation bilaterally. HEART: S1, S2, without murmur. ABDOMEN: Obese, soft, nontender, no guarding or rebound. EXTREMITIES: Without clubbing, cyanosis. Left lower extremity has less erythema about the tibial area that is warm. Does have some mild tracking up through the medial aspect of the leg, has some discomfort in his left groin area - better. Right thigh has some mild irritation and some erythema. SKIN: Warm to touch without generalized signs of rash. Does have some scratches that are healing on his left lower extremity and his right lower extremity as well. NEUROLOGIC: He is nonfocal. PSYCHIATRIC: Affect is appropriate. General: Alert, Oriented X3, Cooperative, No acute distress Heart: Regular rate, Normal S1, Normal S2, No murmurs Lungs: Clear Abdomen: Normal bowel sounds, Soft, No tenderness Extremities: No clubbing, Normal pulses (Strong and palpable, bilateral brachial, radial, femoral and dorsalis pedal pulses. Palpable right post tibial pulse. Strong doppler signal obtained from left post tibial artery. Unable to palpate due to swelling.) Skin: No breakdown, Other (LESS Erythema and warmth to touch mid-fuchs to left leg. Reddened area noted just below left groin. Scattered rash noted to bilateral thighs.) FINAL DIAGNOSIS Problems Medical Problems: (1) Leukocytosis Status: Acute Brief Hospital Course Mr. Penny is a 48 old [sex] who presented with [ LEG CELLULITIS] CONDITION AT DISCHARGE: Improved Discharge Medications Current Medications Sodium Chloride 1,000 ml @ 2,400 mls/hr Q25M IV Last administered on 03/26/19at 22:43; Start 03/26/19 at 20:30; Stop 03/26/19 at 21:29; Status DC Piperacillin Sod/ Tazobactam Sod 4.5 gm/Sodium Chloride 100 ml @ 200 mls/hr 1X ONCE IV Last administered on 03/26/19at 20:30; Start 03/26/19 at 20:30; Stop 03/26/19 at 20:59; Status DC Vancomycin HCl (Vanco Per Pharmacy) 1 each 1X ONCE MC ; Start 03/26/19 at 20:30; Stop 03/26/19 at 20:31; Status DC Acetaminophen (Tylenol) 1,000 mg 1X ONCE PO Last administered on 03/26/19at 20:31; Start 03/26/19 at 20:30; Stop 03/26/19 at 20:31; Status DC Vancomycin HCl 2 gm/Sodium Chloride 500 ml @ 250 mls/hr 1X ONCE IV Last administered on 03/26/19at 20:31; Start 03/26/19 at 20:30; Stop 03/26/19 at 22:29; Status DC Clindamycin Phosphate 50 ml @ 100 mls/hr Q8HRS IV Last administered on 03/28at 05:19; Start 03/26/19 at 22:00; Stop 03/28/19 at 10:45; Status DC Lactobacillus Rhamnosus (Culturelle) 1 cap BID PO Last administered on 03/30/19at 08:36; Start 03/27/19 at 09:00 Ondansetron HCl (Zofran) 4 mg PRN Q8HRS PRN IV NAUSEA/VOMITING; Start 03/26/19 at 21:30; Stop 03/27/19 at 21:29; Status DC Morphine Sulfate (Morphine Sulfate) 4 mg PRN Q2HR PRN IV PAIN Last administered on 03/27/19at 16:58; Start 03/26/19 at 21:30; Stop 03/27/19 at 19:28; Status DC Acetaminophen (Tylenol) 650 mg PRN Q4HRS PRN PO FEVER Last administered on 03/27/19 03:46; Start 03/26/19 at 21:30; Stop 03/27/19 at 21:29; Status DC Sodium Chloride 1,000 ml @ 125 mls/hr 1X ONCE IV ; Start 03/26/19 at 21:30; Stop 03/27/19 at 05:29; Status DC Influenza Virus Vaccine Quadrival (Afluria Quad 2019-20 (3yr Up) Syringe) 0.5 ml ONCE ONCE VAX IM ; Start 03/27/19 at 09:00; Stop 03/27/19 at 09:01; Status DC Info (FLU VACCINE SCREEN per RX) 1 each PRN 1X PRN MC SEE COMMENTS; Start 03/26/19 at 23:45; Status Cancel Piperacillin Sod/ Tazobactam Sod 4.5 gm/Sodium Chloride 100 ml @ 200 mls/hr Q6HRS IV Last administered on 03/30/19at 00:12; Start 03/27/19 at 12:00; Stop 03/30/19 at 08:13; Status DC Vancomycin HCl (Vanco Per Pharmacy) 1 each PRN DAILY PRN MC SEE COMMENTS Last administered on 03/29/19at 19:31; Start 03/27/19 at 08:30; Stop 03/30/19 at 08:13; Status DC Vancomycin HCl 2 gm/Sodium Chloride 500 ml @ 250 mls/hr Q12H IV Last administered on 03/27/19at 21:03; Start 03/27/19 at 09:00; Stop 03/28/19 at 09:37; Status DC Vancomycin HCl (Vancomycin Trough Level) 1 each 1X ONCE MC Last administered on 03/28/19at 08:30; Start 03/28/19 at 08:30; Stop 03/28/19 at 08:31; Status DC Ondansetron HCl (Zofran) 4 mg STK-MED ONCE .ROUTE ; Start 03/27/19 at 12:03; Stop 03/27/19 at 12:04; Status DC Sevoflurane (Ultane) 15 ml STK-MED ONCE IH ; Start 03/27/19 at 12:03; Stop 03/27/19 at 12:04; Status DC Propofol 0 ml @ As Directed STK-MED ONCE IV ; Start 03/27/19 at 12:04; Stop 03/27/19 at 12:04; Status DC Lidocaine HCl (Lidocaine Pf 2% Vial) 5 ml STK-MED ONCE .ROUTE ; Start 03/27/19 at 12:04; Stop 03/27/19 at 12:04; Status DC Enoxaparin Sodium (Lovenox 40mg Syringe) 40 mg Q24H SQ Last administered on 03/29/19at 13:19; Start 03/27/19 at 13:00 Acetaminophen/ Hydrocodone Bitart (Lortab 5/325) 1 tab PRN Q4HRS PRN PO PAIN Last administered on 03/30/19at 07:15; Start 03/27/19 at 19:30 Fentanyl Citrate (Fentanyl 2ml Vial) 50 mcg PRN Q2HR PRN IVP PAIN, 2nd CHOICE Last administered on 03/29/19at 05:09; Start 03/27/19 at 19:30 Morphine Sulfate (Morphine Sulfate) 2 mg PRN Q2HR PRN IV PAIN, 1st CHOICE; Start 03/27/19 at 19:30 Vancomycin HCl 1.75 gm/Sodium Chloride 500 ml @ 250 mls/hr Q12H IV ; Start 03/28/19 at 10:00; Status Cancel Vancomycin HCl (Vancomycin Trough Level) 1 each 1X ONCE MC ; Start 03/29/19 at 09:30; Stop 03/29/19 at 09:31; Status DC Vancomycin HCl 1.75 gm/Sodium Chloride 500 ml @ 250 mls/hr Q8H IV Last administered on 03/29/19at 09:31; Start 03/28/19 at 10:00; Stop 03/29/19 at 17:35; Status DC Vancomycin HCl (Vancomycin Random Level) 1 each 1X ONCE MC Last administered on 03/29/19at 17:30; Start 03/29/19 at 17:30; Stop 03/29/19 at 17:31; Status DC Vancomycin HCl 1.75 gm/Sodium Chloride 500 ml @ 250 mls/hr Q8H IV Last administered on 03/30/19at 05:18; Start 03/29/19 at 20:00; Stop 03/30/19 at 08:13; Status DC Vancomycin HCl (Vancomycin Trough Level) 1 each 1X ONCE MC ; Start 03/30/19 at 11:30; Stop 03/30/19 at 08:18; Status DC Linezolid (Zyvox) 600 mg BID PO Last administered on 03/30/19at 08:36; Start 03/30/19 at 09:00 Cephalexin HCl (Keflex) 500 mg QID PO Last administered on 03/30/19at 08:35; Start 03/30/19 at 09:00 Active Scripts Active Vital Signs Vital Signs Date Time Temp Pulse Resp B/P (MAP) Pulse Ox O2 Delivery O2 Flow Rate FiO2 03/30/19 11: 98.4 85 20 145/77 (99) 94 Room Air 98.4 Labs Laboratory Tests Test 03/28/19 21:30 03/29/19 03:40 03/29/19 17:40 03/30/19 09:15 Urine Opiates Screen Neg (NEG) Urine Methadone Screen Neg (NEG) Urine Barbiturates Neg (NEG) Urine Phencyclidine Screen Neg (NEG) Urine Amphetamine/Methamphetamine Pos (NEG) Urine Benzodiazepines Screen Neg (NEG) Urine Cocaine Screen Neg (NEG) Urine Cannabinoids Screen Neg (NEG) Urine Ethyl Alcohol Neg (NEG) White Blood Count 10.2 x10^3/uL (4.0-11.0) Red Blood Count 4.51 x10^6/uL (4.30-5.70) Hemoglobin 13.5 g/dL (13.0-17.5) Hematocrit 40.4 % (39.0-53.0) Mean Corpuscular Volume 90 fL (79-100) Mean Corpuscular Hemoglobin 30 pg (25-35) Mean Corpuscular Hemoglobin Concent 34 g/dL (31-37) Red Cell Distribution Width 14.5 % (11.5-14.5) Platelet Count 265 x10^3/uL (140-400) Neutrophils (%) (Auto) 69 % (31-73) Lymphocytes (%) (Auto) 15 % (24-48) Monocytes (%) (Auto) 10 % (0-9) Eosinophils (%) (Auto) 5 % (0-3) Basophils (%) (Auto) 1 % (0-3) Neutrophils # (Auto) 7.1 x10^3/uL (1.8-7.7) Lymphocytes # (Auto) 1.5 x10^3/uL (1.0-4.8) Monocytes # (Auto) 1.0 x10^3/uL (0.0-1.1) Eosinophils # (Auto) 0.5 x10^3/uL (0.0-0.7) Basophils # (Auto) 0.1 x10^3/uL (0.0-0.2) Sodium Level 141 mmol/L (136-145) Potassium Level 3.7 mmol/L (3.5-5.1) Chloride Level 103 mmol/L (98-107) Carbon Dioxide Level 27 mmol/L (21-32) Anion Gap 11 (6-14) Blood Urea Nitrogen 7 mg/dL (8-26) Creatinine 1.0 mg/dL (0.7-1.3) 1.0 mg/dL (0.7-1.3) Estimated GFR (Cockcroft-Gault) 79.4 79.4 BUN/Creatinine Ratio 7 (6-20) Glucose Level 94 mg/dL (70-99) Calcium Level 8.5 mg/dL (8.5-10.1) Total Bilirubin 0.2 mg/dL (0.2-1.0) Aspartate Amino Transf (AST/SGOT) 16 U/L (15-37) Alanine Aminotransferase (ALT/SGPT) 11 U/L (16-63) Alkaline Phosphatase 75 U/L (46-116) Total Protein 6.7 g/dL (6.4-8.2) Albumin 2.8 g/dL (3.4-5.0) Albumin/Globulin Ratio 0.7 (1.0-1.7) Random Vancomycin Level 14.7 mcg/mL Laboratory Tests Test 03/29/19 17:40 03/30/19 09:15 Random Vancomycin Level 14.7 mcg/mL Creatinine 1.0 mg/dL (0.7-1.3) Estimated GFR (Cockcroft-Gault) 79.4 Allergies Allergies Coded Allergies Type Severity Reaction Last Updated Verified Iodinated Contrast Media Allergy Severe "throat swells closed" 02/16/19 Yes Disposition/Orders: D/C to Home Patient Instructions D/C PLANNING 28 MIN MARCIARMEN LEIGH MD Mar 30, 2019 12:27
[2019-03-30] MEDS ORDERED: LINE600T12 PO (12:28)
[2019-03-30] MEDS ORDERED: LACT1CAP19 PO (12:28)
[2019-03-30] MEDS ORDERED: CEPH250C PO (12:28)
--- NOTE | 2019-03-30 12:30 | DISCH ---
DISCHARGE INSTRUCTIONS Condition on Discharge Condition on Discharge: Stable Activity After Discharge Activity Instructions for Disc: Activity as tolerated Lifting Instructions after Dis: No heavy lifting Exercise Instruction after Dis: Progress as tolerated Driving Instructions after Dis: Do not drive today Weight Bearing Status after Di: As tolerated Diet after Discharge Diet after Discharge: Cardiac Swallowing Supervision: None needed Wound Incision Care Wound/Incision Care: No wound care needed Checks after Discharge Checks after discharge: Check blood press - daily Contacting the DR. after DC Call your doctor for: If your condition worsens Treatment/Equipment after DC Adaptive Equipment Issued: None MARICARMEN LEIGH MD Mar 30, 2019 12:30
[2019-03-30] MEDS: ENOXAPARIN 40 MG/0.4 ML SYRINGE. SQ SCH (12:51)
--- NOTE | 2019-03-30 13:42 | NUR ---
Pt discharged to home. Picked up by family friend. Discharge teaching completed. Zyvox will be delivered to pts home.
== END 2019-03-30 13:42 | disposition home or self-care (01) | DRG 872 ==
LOC: ER 19:44 → 6 SOUTH 20:18
PROVIDERS: ADMIT Internal Medicine; ATTEND Internal Medicine
DX: A41.9 Sepsis, unspecified organism (principal); L03.115 Cellulitis of right lower limb; L03.116 Cellulitis of left lower limb; E66.01 Morbid (severe) obesity due to excess calories; F15.90 Other stimulant use, unspecified, uncomplicated; F17.210 Nicotine dependence, cigarettes, uncomplicated; I73.9 Peripheral vascular disease, unspecified; K21.9 Gastro-esophageal reflux disease without esophagitis; K80.20 Calculus of gallbladder without cholecystitis without obstruction; M43.17 Spondylolisthesis, lumbosacral region; M47.9 Spondylosis, unspecified; Z82.49 Family history of ischemic heart disease and other diseases of the circulatory system; Z68.34 Body mass index [BMI] 34.0-34.9, adult
CPT/HCPCS: 36415; 73590; 80048; 80053; 80202; 80307; 82565; 83605; 84145; 85007; 85025; 85651; 86140; 87040; 93925; 93970; 96365; 96368; J1650; J2001; J2270; J2405; J2543; J2704; J3010; J3370; J3490; J7030; J7040; 99285-25; G0378